=== PATIENT | male | born 1975 | race Native Hawaiian/Other Pacific Islander ===

== ENCOUNTER 2017-11-04 12:20 | Inpatient (IN) | payer OTHER ==
[2017-11-04 12:28] VITALS: BMI 48.6
[2017-11-04] MEDS ORDERED: SODIUM CHLORIDE 1,000 ML IV STA (13:47)
[2017-11-04] MEDS ORDERED: ONDANSETRON 4 MG/2 ML VIAL IVPB ONE (13:47)
[2017-11-04] MEDS ORDERED: morphine CARPU-JECT 4 MG/1 ML DISP.SYRIN IVPUSH ONE ×3 (13:47→15:56)
[2017-11-04] MEDS ORDERED: MORPHINE SULFATE 10 MG/1 ML *VIAL ONE ×3 (14:03→18:16)
[2017-11-04] MEDS ORDERED: ONDANSETRON 4 MG/2 ML VIAL ONE ×2 (14:04→15:58)
--- NOTE | 2017-11-04 14:24 | PDOC ---
History of Present Illness - History of Present Illness Initial Comments: 11/04/17 15:13 The patient is a 42 year old male with a significant PMH of kidney stones and HTN who presents to the emergency department with right mid abdominal pain since yesterday. The patient describes the abdominal pain as severe, constant with associated nausea. The patient states he had kidney stones in the past, but reports this feels different. The patient denies any history of appendectomy. The patient denies chest pain, shortness of breath, headache and dizziness. Denies fever, chills, nausea, vomit, diarrhea and constipation. Denies dysuria, frequency, urgency and hematuria. Allergies: acetaminophen, latex, natural rubber, oxycodone. Past surgical history: None reported. Social history: No reported alcohol, drug, or cigarette use. <Indy Mendoza - Last Filed: 11/04/17 15:18> - General History Source: Patient Exam Limitations: No Limitations <Winston Balbuena - Last Filed: 11/04/17 17:29> - General Chief Complaint: Pain, Acute Stated Complaint: ABD PAIN Time Seen by Provider: 11/04/17 13:42 Past History <Indy Mendoza - Last Filed: 11/04/17 15:18> - Past Medical History COPD: No HTN: Yes - Suicide/Smoking/Psychosocial Hx Smoking History: Current every day smoker Number of Cigarettes Smoked Daily: 20 Information on smoking cessation initiated: Yes 'Breaking Loose' booklet given: 11/04/17 Hx Alcohol Use: No Drug/Substance Use Hx: No Substance Use Type: None <Winston Balbuena - Last Filed: 11/04/17 17:29> - Past Medical History Allergies/Adverse Reactions: Allergies Allergy/AdvReac Type Severity Reaction Status Date / Time acetaminophen [From Percocet] Allergy Severe Swelling Verified 11/04/17 12:21 Latex, Natural Rubber Allergy Severe Swelling Verified 11/04/17 12:22 oxycodone [From Percocet] Allergy Severe Swelling Verified 11/04/17 12:21 Review of Systems - Review of Systems Able to Perform ROS?: Yes Comments:: 11/04/17 15:12 GENERAL/CONSTITUTIONAL: No fever or chills. No weakness. HEAD, EYES, EARS, NOSE AND THROAT: No change in vision. No ear pain or discharge. No sore throat. CARDIOVASCULAR: No chest pain or shortness of breath. RESPIRATORY: No cough, wheezing, or hemoptysis. GASTROINTESTINAL: (+) Right sided abdominal pain. (+) Nausea. No vomiting, diarrhea or constipation. GENITOURINARY: No dysuria, frequency, or change in urination. MUSCULOSKELETAL: No joint or muscle swelling or pain. No neck or back pain. SKIN: No rash NEUROLOGIC: No headache, vertigo, loss of consciousness, or change in strength/ sensation. ENDOCRINE: No increased thirst. No abnormal weight change. HEMATOLOGIC/LYMPHATIC: No anemia, easy bleeding, or history of blood clots. ALLERGIC/IMMUNOLOGIC: No hives or skin allergy. <Indy Mendoza - Last Filed: 11/04/17 15:18> *Physical Exam - Vital Signs Last Vital Signs Temp Pulse Resp BP Pulse Ox 98.2 F 110 H 24 143/94 99 11/04/17 12:22 11/04/17 12:22 11/04/17 12:22 11/04/17 12:22 11/04/17 14:40 - Physical Exam Comments: 11/04/17 15:12 ADULT EXAM GENERAL: (+) Appears uncomfortable on stretcher. (+) Obese. Awake, alert, and fully oriented. HEAD: No signs of trauma EYES: PERRLA, EOMI, sclera anicteric, conjunctiva clear ENT: Auricles normal inspection, hearing grossly normal, nares patent, oropharynx clear without exudates. Moist mucosa NECK: Normal ROM, supple, JVD, or masses LUNGS: Breath sounds equal, clear to auscultation bilaterally. No wheezes, and no crackles HEART: Regular rate and rhythm, normal S1 and S2, no murmurs, rubs or gallops ABDOMEN: (+) Right mid abdominal and RLQ tenderness. Soft, normoactive bowel sounds. No guarding, no rebound. No masses EXTREMITIES: Normal range of motion, no edema. No clubbing or cyanosis. No cords, erythema, or tenderness NEUROLOGICAL: Cranial nerves II through XII grossly intact. Normal speech. SKIN: Warm, Dry, normal turgor, no rashes or lesions noted. <Indy Mendoza - Last Filed: 11/04/17 15:18> - Vital Signs Last Vital Signs Temp Pulse Resp BP Pulse Ox 98.2 F 110 H 24 143/94 100 11/04/17 12:22 11/04/17 12:22 11/04/17 12:22 11/04/17 12:22 11/04/17 12:22 <Winston Balbuena - Last Filed: 11/04/17 17:29> ED Treatment Course - LABORATORY CBC & Chemistry Diagram: 11/04/17 14:15 11/04/17 14:15 - ADDITIONAL ORDERS Additional order review: 11/04/17 14:15 RBC 4.75 MCV 79.6 L MCHC 31.5 L RDW 15.4 MPV 7.0 L Neutrophils % No Result Required. Lymphocytes % No Result Required. - Medications Given in the ED: ED Medications Discontinued Medications Generic Name Dose Route Start Last Admin Trade Name Freq PRN Reason Stop Dose Admin Sodium Chloride 1,000 mls @ 1,000 mls/hr 11/04/17 13:47 11/04/17 14:26 Normal Saline - IV 11/04/17 14:46 1,000 mls/hr ASDIR STA Administration Morphine Sulfate 6 mg 11/04/17 13:47 11/04/17 14:25 Morphine Injection - IVPUSH 11/04/17 13:48 6 mg ONCE ONE Administration Ondansetron HCl 4 mg 11/04/17 13:47 11/04/17 14:26 Zofran Injection IVPB 11/04/17 13:48 4 mg ONCE ONE Administration <Indy Mendoza - Last Filed: 11/04/17 15:18> - LABORATORY CBC & Chemistry Diagram: 11/04/17 14:15 11/04/17 14:15 - RADIOLOGY Radiology Studies Ordered: Category Date Time Status SPIRAL- RENAL-STONE CT [CT] Stat CT Scan 11/04/17 13:47 Ordered <Winston Balbuena - Last Filed: 11/04/17 17:29> Medical Decision Making - Medical Decision Making 11/04/17 14:22 A portion of this note was documented by scribe services under my direction. I have reviewed the details of the note, within reason, and agree with the documentation with the following case summary and management plan written by me. Patient treated in the ED. Nursing notes are reviewed and incorporated into the medical decision-making. Vital signs reviewed. Peripheral IV access obtained by the nurse, laboratory studies are drawn and sent, reviewed and interpreted by myself. Vital Signs Temp Pulse Resp BP Pulse Ox 98.2 F 110 H 24 143/94 100 11/04/17 12:22 11/04/17 12:22 11/04/17 12:22 11/04/17 12:22 11/04/17 12:22 42-year-old male with past medical history of kidney stones presents with right mid abdominal pain since yesterday. Patient reported the pain is severe and constant associated nausea but denies any vomiting. Denies dysuria or hematuria. Denies fevers or chills. Denies history of prior appendectomy. Came to the ED for further evaluation. We'll need to rule out renal colic versus appendicitis. Labs, urinalysis, CAT scan and reassess. 11/04/17 17:26 CBC, BMP 11/04/17 14:15 11/04/17 14:15 CMP Sodium 138 mmol/L (136-145) 11/04/17 14:15 Potassium 4.3 mmol/L (3.5-5.1) 11/04/17 14:15 Chloride 103 mmol/L (98-107) 11/04/17 14:15 Carbon Dioxide 27 mmol/L (21-32) 11/04/17 14:15 Anion Gap 8 (8-16) 11/04/17 14:15 BUN 14 mg/dL (7-18) 11/04/17 14:15 Creatinine 1.4 mg/dL (0.7-1.3) H 11/04/17 14:15 Creat Clearance w eGFR 55.05 (>60) 11/04/17 14:15 Random Glucose 106 mg/dL (74-106) 11/04/17 14:15 Calcium 8.3 mg/dL (8.5-10.1) L 11/04/17 14:15 Total Bilirubin 0.4 mg/dL (0.2-1.0) 11/04/17 14:15 AST 8 U/L (15-37) L 11/04/17 14:15 ALT 11 U/L (12-78) L 11/04/17 14:15 Alkaline Phosphatase 108 U/L (45-117) 11/04/17 14:15 Total Protein 7.2 g/dl (6.4-8.2) 11/04/17 14:15 Albumin 3.3 g/dl (3.4-5.0) L 11/04/17 14:15 Lipase 65 U/L (73-393) L 11/04/17 14:15 CT scan shows stranding, cannot r/o appendicitis. Zosyn ordered. Case discussed with Dr. Jaffe who is seeing the patient. Case discussed with [facility] hospitalist. Case admitted to med/surg admission. Case discussed in detail with admitting physician including history, physical exam and ancillary studies. Admitting physician has assumed care for the patient, will follow all pending diagnostics and will complete the evaluation and treatment. <Winston Balbuena - Last Filed: 11/04/17 17:29> *DC/Admit/Observation/Transfer - Attestations Scribe Attestion: 11/04/17 15:13 Documentation prepared by Indy Mendoza, acting as medical detailist for Winston Balbuena MD. <Indy Mendoza - Last Filed: 11/04/17 15:18> - Discharge Dispostion Admit: Yes <Winston Balbuena - Last Filed: 11/04/17 17:29> Diagnosis at time of Disposition: Abdominal pain Qualifiers: Abdominal location: unspecified location Qualified Code(s): R10.9 - Unspecified abdominal pain Leukocytosis Qualifiers: Leukocytosis type: unspecified Qualified Code(s): D72.829 - Elevated white blood cell count, unspecified - Discharge Dispostion Condition at time of disposition: Stable - Referrals Referrals: ON STAFF,NOT [Primary Care Provider] - - Patient Instructions - Post Discharge Activity
[2017-11-04 14:59] LABS: HEMATOCRIT 37.8 % (35.4-49); HEMOGLOBIN 11.9 GM/dL (11.7-16.9); MCH 25.1 pg (25.7-33.7); MCHC 31.5 g/dl (32.0-35.9); MEAN CELL VOLUME 79.6 fl (80-96); PLATELET COUNT 515 K/MM3 (134-434); RBC 4.75 M/mm3 (4.00-5.60); RDW 15.4 % (11.9-15.9)
[2017-11-04 15:51] LABS: ANISOCYTOSIS 1+; MACROCYTOSIS 0; PLATELET ESTIMATE INCREASED
[2017-11-04 16:03] LABS: ALBUMIN 3.3 g/dl (3.4-5.0); ALK PHOS 108 U/L (45-117); ANION GAP 8 (8-16); BILIRUBIN,TOTAL 0.4 mg/dL (0.2-1.0); BLOOD UREA NITROGEN 14 mg/dL (7-18); CALCIUM 8.3 mg/dL (8.5-10.1); CHLORIDE 103 mmol/L (98-107); CO2 27 mmol/L (21-32); CREATININE 1.4 mg/dL (0.7-1.3); GLUCOSE,RANDOM 106 mg/dL (74-106); LIPASE 65 U/L (73-393); POTASSIUM 4.3 mmol/L (3.5-5.1); SGOT/AST 8 U/L (15-37); SGPT/ALT 11 U/L (12-78); SODIUM 138 mmol/L (136-145); TOT PROT 7.2 g/dl (6.4-8.2)
[2017-11-04] MEDS ORDERED: PIPERACIL/TAZOB 3.375 GM 3.375 GM/50 ML PREMIX IVPB ONE (16:42)
--- NOTE | 2017-11-04 17:10 | CONSULT ---
Consult Consult Specialty:: general surgery Referred by:: hernando chung MD Reason for Consultation:: abdominal pain - History of Present Illness Chief Complaint: abdominal pain History of Present Illness: 42yo male PMH HTN, obesity presents with right lower quadrant abdominal pain for about 24 hours. onset was gradual but focal to right lower quadrant. no previous similar episodes. Reports increase passage of flatus and diarrhea. He denies fever and chill. He has not had an appetite. He rates the pain a 7/10 and morphine in the ED helped. He has no other symptoms hair loss, rashes, etc. of inflammatory bowel disease. no previous endoscopy. no previous abdominal surgery. We were asked to assess. - History Source History Provided By: Patient, Medical Record Limitations to Obtaining History: No Limitations - Past Medical History Cardio/Vascular: Yes: HTN Additional Medical History: obesity - Alcohol/Substance Use Hx Alcohol Use: No - Smoking History Smoking history: Current every day smoker Aproximately how many cigarettes per day: 20 - Social History Place of : [facility] ([place] History of Recent Travel: No Home Medications - Allergies Allergies/Adverse Reactions: Allergies Allergy/AdvReac Type Severity Reaction Status Date / Time acetaminophen [From Percocet] Allergy Severe Swelling Verified 11/04/17 12:21 Latex, Natural Rubber Allergy Severe Swelling Verified 11/04/17 12:22 oxycodone [From Percocet] Allergy Severe Swelling Verified 11/04/17 12:21 Review of Systems - Review of Systems Constitutional: denies: Chills, Fever Eyes: denies: Blind Spots, Recent Change in Vision HENT: denies: Difficult Swallowing, Throat Pain Neck: denies: Pain on Movement, Tenderness Cardiovascular: denies: Chest Pain, Palpitations Respiratory: denies: Cough, SOB Gastrointestinal: reports: Abdominal Pain, Bloating, Diarrhea. denies: Constipation Genitourinary: denies: Discharge, Dysuria Breasts: reports: No Symptoms Reported. denies: Pain Musculoskeletal: denies: Back Pain, Muscle Cramps, Muscle Weakness Integumentary: denies: Lesions, Rash Neurological: denies: Confusion, Dizziness Endocrine: denies: Unexplained Weight Gain, Unexplained Weight Loss Hematology/Lymphatic: denies: Easily Bruised, Excessive Bleeding Psychiatric: denies: Anxiety, Depression Physical Exam Vital Signs: Vital Signs Temperature 98.2 F 11/04/17 12:22 Pulse Rate 110 H 11/04/17 12:22 Respiratory Rate 24 11/04/17 12:22 Blood Pressure 143/94 11/04/17 12:22 O2 Sat by Pulse Oximetry (%) 99 11/04/17 14:40 Vital Signs Period Temp Pulse Resp BP Sys/Abraham Pulse Ox Last 24 Hr 98.2 F 110 24 143/94 99-100 Constitutional: Yes: Anxious, Mild Distress, Obese Eyes: Yes: Conjunctiva Clear, EOM Intact HENT: Yes: Atraumatic, Normocephalic Neck: Yes: Supple, Trachea Midline Cardiovascular: Yes: Regular Rate and Rhythm, S1, S2 Respiratory: Yes: Regular, CTA Bilaterally Gastrointestinal: Yes: Normal Bowel Sounds, Soft, Abdomen, Obese, Tenderness ( Tender RLQ, voluluntary guarding, reborund, not rigid, + psoas sign), Tenderness , Rebound. No: Vomiting ...Rectal Exam: Yes: Sphincter Tone Normal. No: Mass Renal/: No: CVA Tenderness - Left, CVA Tenderness - Right Musculoskeletal: No: Muscle Pain, Muscle Weakness Extremities: No: Cool, Cyanosis Edema: No Peripheral Pulses WNL: Yes Neurological: Yes: Alert, Oriented Psychiatric: Yes: Alert, Oriented Labs: CBC, BMP 11/04/17 14:15 11/04/17 14:15 Imaging - Results Cat Scan: Report Reviewed, Image Reviewed (mesentaric edema RLQ, inflamed appendix, inflamed loos of SB) Problem List - Problems (1) Appendicitis, acute, with peritonitis Assessment/Plan: 42yo male with PMH HTN morbid obesity, appendicitis with peritonitits, WBC >24, CT shows NPO and IVF hydration empiric IV antibiotics Stat labs Diagnostic laparoscopy, appendectomy, possible exploratory laparotomy, possbible bowel ressection, possible ostomy -- Discussed with patient risks, benefits and alternatives of proposed procedure, including but not limited to bleeding, infection, injury to adjacent structures, leak or injury, intraabdominal abscess, need for further procedures, ; alternatives include antibiotics, delayed or no surgery - risks of this include failure of nonoperative therapy, perforation, sepsis, recurrence, . Patient desires to proceed with operation - will take to OR for above. Informed consent signed for same. Thank you for the opportunity to participate in the care of this patient. Code(s): K35.3 - ACUTE APPENDICITIS WITH LOCALIZED PERITONITIS (2) Right lower quadrant abdominal pain Code(s): R10.31 - RIGHT LOWER QUADRANT PAIN (3) HTN (hypertension) Code(s): I10 - ESSENTIAL (PRIMARY) HYPERTENSION Qualifiers: Hypertension type: essential hypertension Qualified Code(s): I10 - Essential (primary) hypertension (4) Morbid obesity with BMI of 45.0-49.9, adult Code(s): E66.01 - MORBID (SEVERE) OBESITY DUE TO EXCESS CALORIES; Z68.42 - BODY MASS INDEX (BMI) 45.0-49.9, ADULT (5) Leukocytosis Code(s): D72.829 - ELEVATED WHITE BLOOD CELL COUNT, UNSPECIFIED Qualifiers: Leukocytosis type: unspecified Qualified Code(s): D72.829 - Elevated white blood cell count, unspecified
--- NOTE | 2017-11-04 17:15 | HP ---
Admitting History and Physical - Admission Chief Complaint: abdominal pain History of Present Illness: This is a 42 year old male with pmhx of htn, active smoke, kidney stones, knee replacement who presented to the ED with worsening abdominal pain since last night. He states he has suffered from the stomach flu x2 in the last 2 months. The pain is acute to the RLQ and diffuse to lower abdomen. His breathing is shallow and his pain is associated with nausea. History Source: Patient Limitations to Obtaining History: No Limitations - Past Medical History Cardiovascular: Yes: HTN - Past Surgical History Additional Past Surgical History: knee replacement - Smoking History Smoking history: Current every day smoker Aproximately how many cigarettes per day: 20 - Alcohol/Substance Use Hx Alcohol Use: No History of Substance Use: reports: None - Social History Usual Living Arrangement: Yes: With Spouse ADL: Independent Occupation: computers History of Recent Travel: No Home Medications - Allergies Allergies/Adverse Reactions: Allergies Allergy/AdvReac Type Severity Reaction Status Date / Time acetaminophen [From Percocet] Allergy Severe Swelling Verified 11/04/17 12:21 Latex, Natural Rubber Allergy Severe Swelling Verified 11/04/17 12:22 oxycodone [From Percocet] Allergy Severe Swelling Verified 11/04/17 12:21 Review of Systems - Review of Systems Constitutional: reports: No Symptoms Eyes: reports: No Symptoms HENT: reports: No Symptoms Neck: reports: No Symptoms Cardiovascular: reports: No Symptoms Respiratory: reports: No Symptoms Gastrointestinal: reports: Abdominal Pain, Nausea Genitourinary: reports: No Symptoms Musculoskeletal: reports: No Symptoms Integumentary: reports: No Symptoms Neurological: reports: No Symptoms Endocrine: reports: No Symptoms Hematology/Lymphatic: reports: No Symptoms Psychiatric: reports: No Symptoms Physical Examination Vital Signs: Vital Signs Temperature 98.2 F 11/04/17 12:22 Pulse Rate 110 H 11/04/17 12:22 Respiratory Rate 24 11/04/17 12:22 Blood Pressure 143/94 11/04/17 12:22 O2 Sat by Pulse Oximetry (%) 99 11/04/17 14:40 Constitutional: Yes: Severe Distress Eyes: Yes: Conjunctiva Clear HENT: Yes: WNL Neck: Yes: WNL Cardiovascular: Yes: Regular Rate and Rhythm, Tachycardia Respiratory: Yes: Regular, CTA Bilaterally Gastrointestinal: Yes: Normal Bowel Sounds, Abdomen, Obese, Hypoactive Bowel Sounds, Tenderness, Tenderness, Rebound (RLQ) Renal/: Yes: WNL Musculoskeletal: Yes: WNL Extremities: Yes: WNL Edema: No Peripheral Pulses WNL: Yes Neurological: Yes: Alert, Oriented, Cran Nerves II-XII Intact Labs: CBC, BMP 11/04/17 14:15 11/04/17 14:15 Imaging - Results Cat Scan: Report Reviewed (RLQ mesenteric wall edema involving several distal ileal loops) Problem List - Problems (1) Abdominal pain Code(s): R10.9 - UNSPECIFIED ABDOMINAL PAIN Qualifiers: Abdominal location: unspecified location Qualified Code(s): R10.9 - Unspecified abdominal pain (2) Leukocytosis Code(s): D72.829 - ELEVATED WHITE BLOOD CELL COUNT, UNSPECIFIED Qualifiers: Leukocytosis type: unspecified Qualified Code(s): D72.829 - Elevated white blood cell count, unspecified Assessment/Plan Assessment: 42 year old male admitted with intractable abdominal pain Plan: 1. Sepsis with likely abdominal source - Intractable abdominal pain - CTAP noted, contrast not visible due to ?inflammation - Will go to OR emergently for Exploratory laparotomy and appendectomy - Zosyn given in ED - D/w Dr. iglesias 2. HTN - Norvasc - Lisinopril 3. Active smoker - Give nicotine patch if requires 4. CORTNEY - Due to spesis - Start fluids 6. Thrombocytosis - Likely reactive 7. DVT - SCDs for now Visit type - Emergency Visit Emergency Visit: Yes Care time: The patient presented to the Emergency Department on the above date and was hospitalized for further evaluation of their emergent condition. - New Patient This patient is new to me today: Yes Date on this admission: 11/04/17 - Critical Care Critical Care patient: No Hospitalist Screening - Colonoscopy Questionnaire Colonoscopy Questionnaire: Colonoscopy Questionnaire - Patient: 50 - 75 years old and never had a screening colonoscopy: Unknown History of colon or rectal polyps, or CA: Unknown History of IBD, Crohn's disease or UC: Unknown History of abdominal radiation therapy as a child: Unknown - Relative: 1 with colon or rectal CA, or polyps at age 60 or younger: Unknown Colon or rectal CA diagnosed at age 45 or younger: Unknown Multiple relatives with colon or rectal CA: Unknown - Outcome: Screening Result: Negative Screen
[2017-11-04] MEDS: PIPERACILLIN/TAZOB 3.375 GM 3.375 GM in DEXTROSE 5%-WATER - 50 ML IVPB ONE ×2 (17:19→18:56)
[2017-11-04] MEDS ORDERED: PIPERACILLIN/TAZOB 3.375 GM 3.375 GM/50 ML BAG IVPB ONE (17:20)
[2017-11-04 17:50] LABS: URINE APPEARANCE CLEAR; URINE BILIRUBIN NEGATIVE (NEGATIVE); URINE BLOOD NEGATIVE (NEGATIVE); URINE COLOR AMBER; URINE GLUCOSE (UA) NEGATIVE (NEGATIVE); URINE KETONE NEGATIVE (NEGATIVE); URINE LEUK ESTERASE NEGATIVE (NEGATIVE); URINE NITRITE NEGATIVE (NEGATIVE); URINE UROBILINOGEN 4.0 E.U/dl mg/dL (0.2-1.0)
[2017-11-04] MEDS ORDERED: MORPHINE SULFATE 10 MG/1 ML *VIAL IVPUSH PRN ×2 (17:54→22:55)
[2017-11-04 18:00] LABS: URINE PROTEIN 2+ (NEGATIVE)
[2017-11-04] MEDS ORDERED: LACTATED RINGERS SOLUTION 1,000 ML/1,000 ML INFUS.BAG IV SCH ×2 (18:00→22:55)
[2017-11-04] MEDS ORDERED: SODIUM CHLORIDE 1,000 ML IV SCH (18:00)
[2017-11-04 18:05] LABS: URINE MUCUS MANY
[2017-11-04] MEDS ORDERED: PROPOFOL 20 ML ONE (19:29)
[2017-11-04] MEDS ORDERED: ROCURONIUM BROMIDE 50 MG/5 ML VIAL ONE (19:30)
[2017-11-04] MEDS ORDERED: SUCCINYLCHOLINE CHLORIDE 200 MG/10 ML VIAL ONE (19:30)
[2017-11-04] MEDS ORDERED: DEXAMETHASONE SOD PHOSPHATE 4 MG/1 ML VIAL ONE (20:27)
[2017-11-04] MEDS ORDERED: METOPROLOL TARTRATE 5 MG/5 ML VIAL ONE (20:43)
[2017-11-04] MEDS ORDERED: NEOSTIGMINE METHYLSULFATE 0.5 MG/ML - 10 ML MDV ONE (21:44)
[2017-11-04] MEDS ORDERED: GLYCOPYRROLATE 0.2 MG/1 ML VIAL ONE (21:44)
--- NOTE | 2017-11-04 22:08 | OP ---
Operative Note - Note: Operative Date: 11/04/17 Pre-Operative Diagnosis: acute appendicitis with intraabdominal abscess Operation: diagnositic laparoscopy, laparotomy, lysis of adhesions, appendectomy and abdominal washout Findings: purulent drainage and peel all over the lower abdomen, inflamed appendix stapled with endo TIFFANY Implants: none Post-Operative Diagnosis: Same as Pre-op Surgeon: Bernardo Jaffe Anesthesiologist/CORPORATE EXECUTIVE CHEF: Lanette Lockwood Anesthesia: General Estimated Blood Loss (mls): 20 Drains & Tubes with Location: RLQ GENA Drain size 10 flat Drains, Volume Out (mls): 250 (jason) Fluid Volume Replaced (mls): 1,600 Operative Report Dictated: Yes
[2017-11-04] MEDS ORDERED: ACETAMINOPHEN INJECTION 100 ML IVPB ONE (22:19)
[2017-11-04] MEDS ORDERED: ACETAMINOPHEN 1000 MG/100 ML VIAL (NON FORMULARY) IVPB PRN ×3 (22:23→23:05)
[2017-11-04 22:29] LABS: BASO % 0.3 % (0-2.0); HEMATOCRIT 37.6 % (35.4-49); LYMPH % 3.3 % (8-40); MCH 25.2 pg (25.7-33.7); MEAN PLT VOLUME 6.8 fl (7.5-11.1); MONO % 2.9 % (3.8-10.2); NEUT % 93.5 % (42.8-82.8); PLATELET COUNT 511 K/MM3 (134-434); RBC 4.76 M/mm3 (4.00-5.60); RDW 15.3 % (11.9-15.9); WHITE BLOOD COUNT 22.4 K/mm3 (4.0-10.0)
[2017-11-04 22:45] LABS: INR 1.25 (0.82-1.09); PROTHROMBIN TIME (PATIENT) 14.1 SEC (9.98-11.88)
[2017-11-04] MEDS ORDERED: PIPERACILLIN/TAZOB 3.375 GM/50 ML PRE-DOCKED IVPB ONE ×2 (23:00)
[2017-11-04] MEDS ORDERED: PIPERACILLIN/TAZOB 3.375 GM 3.375 GM in DEXTROSE 5%-WATER - 50 ML IVPB ONE (23:00)
[2017-11-04 23:01] LABS: ALBUMIN 2.9 g/dl (3.4-5.0); ALK PHOS 101 U/L (45-117); ANION GAP 11 (8-16); BILIRUBIN,TOTAL 1.2 mg/dL (0.2-1.0); BLOOD UREA NITROGEN 13 mg/dL (7-18); CALCIUM 8.2 mg/dL (8.5-10.1); CHLORIDE 103 mmol/L (98-107); CO2 24 mmol/L (21-32); CREATININE 1.5 mg/dL (0.7-1.3); GLUCOSE,RANDOM 154 mg/dL (74-106); POTASSIUM 4.4 mmol/L (3.5-5.1); SGOT/AST 6 U/L (15-37); SGPT/ALT 14 U/L (12-78); SODIUM 138 mmol/L (136-145); TOT PROT 6.9 g/dl (6.4-8.2)
--- NOTE | 2017-11-04 23:19 | CONSULT ---
Consult Consult Specialty:: Pulm/ critical care Referred by:: Kirsten Jordan Reason for Consultation:: s/p appendectomy - History of Present Illness Chief Complaint: abdominal pain History of Present Illness: 42 y/o man with h/o morbid obesity, HTN, kidney stones, + tobacco and likely undiagnosed sleep apnea who presented to ED with right abdominal pain and and nausea. Pt reports pain x 1 day however also reports several weeks of stomach flu. He reports having kidney stones in the past but feels this pain is different, described as acute to RLQ and diffuse to lower abdomen, associated with nausea. He reports having no appetite and increased passage of flatus and diarrhea. VS in ED: T 98.2, HR 110, BP 143/94, RR 24, 100% on RA. Labs notable for WBC 24 , creat 1.4, lipase 65. He was given morphine for pain with some relief and underwent CT A/P which was notable for thickened appendix with some mesenteric edema. Pt was taken to OR with plan for laparoscopic appendectomy however due to adhesions and extensive infection, it was converted to open. He was found to have purulent drainage and peel extending through lower abdomen. Appendix was inflamed, was removed and abdomen washed out, fascia closed with drain in place , and skin left open. Pt was given zosyn. Post-op pt was maintained on CPAP due to concern for sleep apnea. Active Medications Acetaminophen (Ofirmev Injection -) 1,000 mg IVPB Q6H PRN PRN Reason: PAIN LEVEL 6-10 Chlorhexidine Gluconate (Hibiclens For Decolonization -) 1 applic TP HS BRIAN Lactated Ringer's (Lactated Ringers Solution) 1,000 ml in 1,000 mls @ 125 mls/ hr IV ASDIR BRIAN Piperacillin Sod/Tazobactam (Sod 3.375 gm/ Dextrose) 50 mls @ 100 mls/hr IVPB ONCE ONE Stop: 11/04/17 23:29 Piperacillin Sod/Tazobactam (Sod 3.375 gm/ Dextrose) 50 mls @ 100 mls/hr IVPB ONCE ONE Stop: 11/05/17 05:29 Famotidine (Pepcid 20 Mg/12 Ml Push) 20 mg in 12 mls @ 144 mls/hr IVPUSH BID BRIAN Mupirocin (Bactroban Ointment (For Decolonization) -) 1 applic NS BID [facility] Stop: 11/10/17 09:59 - History Source History Provided By: Medical Record Limitations to Obtaining History: Other (cpap) - Past Medical History Cardio/Vascular: Yes: HTN Gastrointestinal: Yes: Other (appendicitis) Renal/: Yes: Renal Calculi Additional Medical History: obesity - Past Surgical History Past Surgical History: Yes: Appendectomy - Alcohol/Substance Use Hx Alcohol Use: No History of Substance Use: reports: None - Smoking History Smoking history: Current every day smoker Aproximately how many cigarettes per day: 20 - Social History ADL: Independent Occupation: computers History of Recent Travel: No Home Medications - Allergies Allergies/Adverse Reactions: Allergies Allergy/AdvReac Type Severity Reaction Status Date / Time acetaminophen [From Percocet] Allergy Severe Swelling Verified 11/04/17 12:21 Latex, Natural Rubber Allergy Severe Swelling Verified 11/04/17 12:22 oxycodone [From Percocet] Allergy Severe Swelling Verified 11/04/17 12:21 - Home Medications Home Medications: Ambulatory Orders Amlodipine Besylate [Norvasc -] 5 mg PO DAILY 11/04/17 Lisinopril [Prinivil] 20 mg PO DAILY 11/04/17 Family Disease History - Family Disease History Family History: Unable to Obtain (pt lethargic, on cpap) Review of Systems Unable to obtain ROS, reason: pt lethargic, on cpap Physical Exam Vital Signs: Vital Signs Temperature 98.9 F 11/04/17 22:02 Pulse Rate 92 H 11/04/17 22:45 Respiratory Rate 16 11/04/17 22:45 Blood Pressure 120/68 11/04/17 22:45 O2 Sat by Pulse Oximetry (%) 96 11/04/17 22:45 Eyes: Yes: WNL, Conjunctiva Clear, Other (pupils pinpoint) HENT: Yes: Normocephalic Cardiovascular: Yes: Regular Rate and Rhythm Respiratory: Yes: CTA Bilaterally, On BiPap Gastrointestinal: Yes: Abdomen, Obese, Hypoactive Bowel Sounds, Tenderness, Other (wound with dressing intact, GENA drain with purulent drainage) Extremities: Yes: WNL Edema: No Peripheral Pulses WNL: Yes Integumentary: Yes: WNL, Tattoos. No: Erythema Wound/Incision: Yes: Dressing Dry and Intact, Other (GENA drain in place with purulent drainage) Neurological: Yes: Lethargy Labs: CBC, BMP 11/04/17 22:15 11/04/17 22:15 Imaging - Results Cat Scan: Report Reviewed Problem List - Problems (1) Abdominal pain Code(s): R10.9 - UNSPECIFIED ABDOMINAL PAIN Qualifiers: Abdominal location: unspecified location Qualified Code(s): R10.9 - Unspecified abdominal pain (2) Appendicitis, acute, with peritonitis Code(s): K35.3 - ACUTE APPENDICITIS WITH LOCALIZED PERITONITIS (3) HTN (hypertension) Code(s): I10 - ESSENTIAL (PRIMARY) HYPERTENSION Qualifiers: Hypertension type: essential hypertension Qualified Code(s): I10 - Essential (primary) hypertension (4) Leukocytosis Code(s): D72.829 - ELEVATED WHITE BLOOD CELL COUNT, UNSPECIFIED Qualifiers: Leukocytosis type: unspecified Qualified Code(s): D72.829 - Elevated white blood cell count, unspecified (5) Morbid obesity with BMI of 45.0-49.9, adult Code(s): E66.01 - MORBID (SEVERE) OBESITY DUE TO EXCESS CALORIES; Z68.42 - BODY MASS INDEX (BMI) 45.0-49.9, ADULT Assessment/Plan Assessment: 42 y/o man with h/o morbid obesity, HTN, kidney stones, + tobacco and likely undiagnosed sleep apnea who presented with RLQ abdominal pain and nausea found to have appendicitis now s/p open appendectomy and wash out, admitted to ICU for post-op monitoring Plan: GI: appendicitis c/b peritonitis now s/p open appendectomy and wash out -plan per surgery -NPO -wound care -will attempt to limit pain control overnight - can advance in am when more awake per anesthesia request due to presumed sleep apnea and somewhat difficult airway -abx as outlined below -PPI ID: appendicitis c/b peritonitis s/p appendectomy and wash out -continue zosyn per surgery -f/u cxl data -monitor WBC, fever trend -close monitoring - at high risk for sepsis -ID consult as needed Pulm: likely undiagnosed sleep apnea -continue CPAP -titrate O2 as needed -pulm consult in am CV: HTN at baseline -close hemodynamic monitoring - pt at risk for sepsis -resume anti-HTN meds as appropriate Renal: Creat slightly elevated on admission, unknown baseline -trend creat -renally dose meds as indicated -continue IVF PPX: -PPI -SCDs Dispo: FULL Marisela Giordano ACNP CCT: 35 mins
[2017-11-05] MEDS ORDERED: PIPERACILLIN/TAZOB 3.375 GM/50 ML PRE-DOCKED IVPB ONE ×3 (05:00→12:46)
[2017-11-05] MEDS ORDERED: PIPERACILLIN/TAZOB 3.375 GM 3.375 GM in DEXTROSE 5%-WATER - 50 ML IVPB ONE (05:00)
[2017-11-05 06:41] LABS: HEMATOCRIT 34.2 % (35.4-49); HEMOGLOBIN 11.1 GM/dL (11.7-16.9); LYMPH % 2.6 % (8-40); MCH 25.6 pg (25.7-33.7); MCHC 32.4 g/dl (32.0-35.9); MEAN PLT VOLUME 6.9 fl (7.5-11.1); MONO % 2.7 % (3.8-10.2); NEUT % 94.7 % (42.8-82.8); PLATELET COUNT 451 K/MM3 (134-434); RBC 4.33 M/mm3 (4.00-5.60); RDW 15.6 % (11.9-15.9)
[2017-11-05 07:01] LABS: CHLORIDE 103 mmol/L (98-107); POTASSIUM 4.5 mmol/L (3.5-5.1); SODIUM 138 mmol/L (136-145)
[2017-11-05 07:19] LABS: ALBUMIN 2.6 g/dl (3.4-5.0); ALK PHOS 91 U/L (45-117); ANION GAP 11 (8-16); BILIRUBIN,TOTAL 1.3 mg/dL (0.2-1.0); BLOOD UREA NITROGEN 15 mg/dL (7-18); CALCIUM 8.4 mg/dL (8.5-10.1); CO2 24 mmol/L (21-32); CREATININE 1.5 mg/dL (0.7-1.3); GLUCOSE,RANDOM 137 mg/dL (74-106); SGOT/AST 6 U/L (15-37); SGPT/ALT 13 U/L (12-78); TOT PROT 6.5 g/dl (6.4-8.2)
[2017-11-05] MEDS ORDERED: SODIUM CHLORIDE 1,000 ML IV SCH (08:00)
--- NOTE | 2017-11-05 08:00 | PN ---
Progress Note, Physician Chief Complaint: ID Cull note dictated Alert BIBAP mask Afebrile - Current Medication List Current Medications: Active Medications Chlorhexidine Gluconate (Hibiclens For Decolonization -) 1 applic TP HS BRIAN Famotidine/Sodium Chloride (Pepcid 20 Mg Premixed Ivpb -) 20 mg in 50 mls @ 100 mls/hr IVPB BID BRIAN Sodium Chloride (Normal Saline -) 1,000 mls @ 83 mls/hr IV ASDIR RBIAN Mupirocin (Bactroban Ointment (For Decolonization) -) 1 applic NS BID BRIAN Stop: 11/10/17 09:59 - Objective Vital Signs: Vital Signs Temperature 97.9 F 11/05/17 02:00 Pulse Rate 70 11/05/17 04:37 Respiratory Rate 14 11/05/17 04:37 Blood Pressure 148/90 11/05/17 04:37 O2 Sat by Pulse Oximetry (%) 98 11/05/17 07:00 Constitutional: Yes: Obese HENT: Yes: WNL, Atraumatic Neck: Yes: WNL, Supple Cardiovascular: Yes: S1, S2 Respiratory: Yes: WNL, Regular, CTA Bilaterally Gastrointestinal: Yes: Soft ...Rectal Exam: Yes: Other (Drain) Edema: No Labs: CBC, BMP 11/05/17 06:15 11/05/17 06:15 INR, PTT INR 1.25 (0.82-1.09) H 11/04/17 22:15 Problem List - Problems (1) Appendicitis, acute, with peritonitis Code(s): K35.3 - ACUTE APPENDICITIS WITH LOCALIZED PERITONITIS Assessment/Plan Microbiology Laboratory Tests 11/04/17 11/05/17 11/05/17 17:10 06:15 06:15 WBC 24.0 H Hgb 11.1 L Hct 34.2 L Plt Count 451 H Neutrophils % 94.7 H Lymphocytes % 2.6 L D Monocytes % 2.7 L BUN 15 Creatinine 1.5 H Creat Clearance w eGFR 50.84 Ur Leukocyte Esterase Negative Urine WBC (Auto) 3 Urine RBC (Auto) 1 Assessment Acute appendicitis with washout laparotomy purulent drainage as noted in op note Plan Zosyn 4.5grs q 8 H Tommy ARIAS
--- NOTE | 2017-11-05 08:22 | CONS ---
DATE OF CONSULTATION: HISTORY: This is a 42-year-old male who came to the emergency room yesterday with chief complaint of worsening abdominal pain and pain noted in the right lower quadrant as well as diffusely. He had an abdominal CAT scan performed following admission, which showed right lower quadrant mesenteric edema in association with bowel wall edema involving several distal ileal loops. The appendix appeared slightly thickened. Surgical consultation was obtained, and the patient was taken to the operating room where a laparotomy was performed with lysis of adhesions, appendectomy, findings of an intra-abdominal abscess, and abdominal washout performed with pus noted all over the lower abdomen as well as an inflamed appendix. I am asked to see the patient now for further antibiotic management postoperatively. He has been afebrile during this time but has been requiring a BiPAP mask to maintain his oxygen saturations. His O2 had dropped as low as 88. PAST MEDICAL HISTORY: Includes prior history of kidney stones and hypertension. MEDICATIONS: Currently Zosyn. ALLERGIES: ACETAMINOPHEN, LATEX, and OXYCODONE. SOCIAL HISTORY: He is engaged. Works as a computer systems designer. No reported drug or alcohol use. HIV tested recently negative. FAMILY HISTORY: Noncontributory. REVIEW OF SYSTEMS: Respiratory: Shortness of breath. No cough, hemoptysis. Cardiac: No history of chest pain, palpitations, syncope, murmur. Gastrointestinal: Postoperative laparotomy. Genitourinary: No dysuria, hematuria, urinary frequency. PHYSICAL EXAMINATION: General: Reveals an obese male weighing 400 pounds. Vital Signs: The temperature is 97.9, pulse 70, blood pressure 145/86, respirations 17, O2 saturation 97% on a BiPAP mask 50%. Neck: Supple with no adenopathy. Lungs: With diminished breath sounds bilaterally. Heart: S1, S2. Regular rhythm without audible murmur. Abdomen: Postoperative distended with a midline laparotomy incision and a drain noted in the right lower quadrant. Postoperative tenderness as expected. Extremities: No clubbing, cyanosis, or edema. LABORATORY DATA: The white count is 24,000 with a hemoglobin of 11.1, platelets 451, BUN 15, creatinine 1.5. Liver enzymes within normal limits. Urinalysis: 3 RBCs, 1 WBC, negative leukocyte esterase. Blood culture, urine culture pending. The patient has not at this point had a chest x-ray performed. ASSESSMENT: A 42-year-old male presents with blood pressure. Taken to the operating room status post laparotomy with abdominal washout with appendicitis with purulent drainage/peritonitis. Blood and urine cultures pending. Advised empiric therapy with piperacillin and tazobactam 4.5 g every 8 hours. Await cultures. Obtain a CRP. Order a chest x-ray. The case was discussed with his primary care provider. GAYLE BARTON M.D. [id number]
--- NOTE | 2017-11-05 08:47 | PN ---
Progress Note (short form) - Note Progress Note: Pulm/CCM 24hr: -stable overnight -Wbc uptrending slightly but afebrile -on Zosyn Vital Signs Temp 98.2 F 11/05/17 08:00 Pulse 78 11/05/17 08:29 Resp 16 11/05/17 08:00 BP 163/91 11/05/17 08:00 Pulse Ox 95 11/05/17 08:29 Intake & Output 11/04/17 11/04/17 11/05/17 11:59 23:59 11:59 Intake Total 1800 1000 Output Total 725 380 Balance 1075 620 Weight 181.437 kg 181.9 kg Intake: IV 1800 1000 LACTATED RINGERS SOLUTION 1000 1,000 ml In 1,000 ml @ 125 mls/hr IV ASDIR BRIAN Rx#:[id number] Output: Drainage 325 30 Right Abdomen 125 30 Urine 400 350 [place] 350 Other: Voiding Method Indwelling Catheter Indwelling Catheter Height 6 ft 4 in Body Mass Index (BMI) 48.6 Weight Measurement Method Built in Bedscale Built in Bedscale Weight Measurement Method Est/Stated by Patient CBC, BMP 11/05/17 06:15 11/05/17 06:15 35CCT Assessment/Plan Assessment: 42 y/o man with h/o morbid obesity, HTN, kidney stones, + tobacco and likely undiagnosed sleep apnea who presented with RLQ abdominal pain and nausea found to have appendicitis now s/p open appendectomy and wash out, admitted to ICU for post-op monitoring Plan: GI: appendicitis c/b peritonitis now s/p open appendectomy and wash out -plan per surgery -NPO, advance as tolerate -wound care -pain control -abx as outlined below -PPI ID: appendicitis c/b peritonitis s/p appendectomy and wash out -continue zosyn per ID -monitor WBC, fever trend -close monitoring - at high risk for sepsis -ID consult Pulm: likely undiagnosed sleep apnea -continue CPAP -titrate O2 as needed -pulm consult in am CV: HTN at baseline -close hemodynamic monitoring - pt at risk for sepsis -resume anti-HTN meds as appropriate Renal: Creat slightly elevated on admission, unknown baseline -trend creat, stable but not downtrending -renally dose meds as indicated -continue IVF PPX: -PPI -SCDs Dispo: FULL, ok for floor today Ronaldo Santamaria ACNP [id number] [id number]
[2017-11-05] MEDS ORDERED: PT OWN MED DRAWER 7, Y5N ONE (08:59)
[2017-11-05] MEDS ORDERED: morphine CARPU-JECT 2 MG/1 ML DISP.SYRIN IVPUSH PRN (09:58)
[2017-11-05] MEDS ORDERED: PIPERACILLIN/TAZOB 4.5 GM 4.5 GM in DEXTROSE 5%-WATER - 100 ML IVPB SCH (10:00)
[2017-11-05] MEDS ORDERED: FAMOTIDINE 20 MG/50 ML IVPB 20 MG/50 ML MG IVPB SCH ×2 (10:00→22:00)
[2017-11-05] MEDS ORDERED: PIPERACILLIN/TAZOB 4.5 GM 4.5 GM/100 ML BAG IVPB SCH (10:00)
[2017-11-05] MEDS ORDERED: MUPIROCIN 2% TOPICAL OINTMENT FOR DECOLONIZATION NS SCH (10:00)
[2017-11-05] MEDS ORDERED: MORPHINE SULFATE 10 MG/1 ML *VIAL IVPUSH PRN (10:05)
--- NOTE | 2017-11-05 10:22 | PN ---
Physical Exam: SUBJECTIVE: Patient seen and examined in ICU. He denies pain, fever chills. He is very thirsty OBJECTIVE: Vital Signs Period Temp Pulse Resp BP Sys/Abraham Pulse Ox Last 24 Hr 97.8 F-98.9 F 64-110 14-30 120-163/48-99 88-100 PE Neuro: alert, awake,cn 2-12intact HEENT: R nasal airway Pulm: Clear anteriorly CV: s1 s2 rrr no mrg Abd: Abd incision dressed + GENA drain yellow mildly cloudy pus drainage : jason,hilton colored urine Ext: no le edema, warm Laboratory Results - last 24 hr 11/04/17 11/05/17 11/05/17 22:15 06:00 06:15 WBC RBC Hgb Hct MCV MCH MCHC RDW Plt Count MPV Neutrophils % Neutrophils % (Manual) Band Neutrophils % Lymphocytes % Lymphocytes % (Manual) Monocytes % Monocytes % (Manual) Eosinophils % Eosinophils % (Manual) Basophils % Basophils % (Manual) Myelocytes % (Man) Promyelocytes % (Man) Nucleated RBC % Metamyelocytes Hypochromia Platelet Estimate Polychromasia Poikilocytosis Anisocytosis Microcytosis Macrocytosis ESR 33 H PT with INR INR Sodium 138 Potassium 4.4 Chloride 103 Carbon Dioxide 24 Anion Gap 11 BUN 13 Creatinine 1.5 H Creat Clearance w eGFR 50.84 Random Glucose 154 H D Calcium 8.2 L Total Bilirubin 1.2 H D AST 6 L D ALT 14 D Alkaline Phosphatase 101 C-Reactive Protein Cancelled Total Protein 6.9 Albumin 2.9 L Lipase Urine Color Urine Appearance Urine pH Ur Specific [place] Urine Protein Urine Glucose (UA) Urine Ketones Urine Blood Urine Nitrite Urine Bilirubin Urine Urobilinogen Ur Leukocyte Esterase Urine WBC (Auto) Urine RBC (Auto) Urine Mucus Blood Type Antibody Screen 11/05/17 11/05/17 06:15 06:15 WBC 24.0 H RBC 4.33 Hgb 11.1 L Hct 34.2 L MCV 79.0 L MCH 25.6 L MCHC 32.4 RDW 15.6 Plt Count 451 H MPV 6.9 L Neutrophils % 94.7 H Neutrophils % (Manual) Band Neutrophils % Lymphocytes % 2.6 L D Lymphocytes % (Manual) Monocytes % 2.7 L Monocytes % (Manual) Eosinophils % 0.0 Eosinophils % (Manual) Basophils % 0.0 Basophils % (Manual) Myelocytes % (Man) Promyelocytes % (Man) Nucleated RBC % Metamyelocytes Hypochromia Platelet Estimate Polychromasia Poikilocytosis Anisocytosis Microcytosis Macrocytosis ESR PT with INR INR Sodium 138 Potassium 4.5 Chloride 103 Carbon Dioxide 24 Anion Gap 11 BUN 15 Creatinine 1.5 H Creat Clearance w eGFR 50.84 Random Glucose 137 H Calcium 8.4 L Total Bilirubin 1.3 H AST 6 L ALT 13 Alkaline Phosphatase 91 C-Reactive Protein 18.2 H Total Protein 6.5 Albumin 2.6 L Lipase Urine Color Urine Appearance Urine pH Ur Specific [place] Urine Protein Urine Glucose (UA) Urine Ketones Urine Blood Urine Nitrite Urine Bilirubin Urine Urobilinogen Ur Leukocyte Esterase Urine WBC (Auto) Urine RBC (Auto) Urine Mucus Blood Type Antibody Screen Active Medications Generic Name Dose Route Start Last Admin Trade Name Freq PRN Reason Stop Dose Admin Chlorhexidine Gluconate 1 applic 11/05/17 22:00 Hibiclens For Decolonization - TP HS BRIAN Famotidine/Sodium Chloride 20 mg in 50 mls @ 100 mls/hr 11/05/17 10:00 09:17 Pepcid 20 Mg Premixed Ivpb - IVPB 100 mls/hr BID BRIAN Administration Sodium Chloride 1,000 mls @ 83 mls/hr 11/05/17 08:00 11/05/17 08:39 Normal Saline - IV 83 mls/hr ASDIR BRIAN Administration Piperacillin Sod/Tazobactam 100 mls @ 200 mls/hr 11/05/17 10:00 11/05/17 09: 17 Sod 4.5 gm/ Dextrose IVPB 200 mls/hr Q8H-IV BRIAN Administration Morphine Sulfate 2 mg 11/05/17 10:05 Morphine Injection - IVPUSH Q3H PRN PAIN LEVEL 4 - 6 Mupirocin 1 applic 11/05/17 10:00 Bactroban Ointment (For Decolonization) - NS 11/10/17 09:59 BID BRIAN Assessment: 42 year old male with pmhx of HTN, kidney stones, active smoker, undiagnosed sleep apnea admitted with RLQ pain and nausea found to have appendicitis now s/p open appendectomy and wash out 11/04. Plan: 1. Sepsis d/t appendicitis w/ intraabdominal abscess - S/p appendectomy with wash out - Continue zosyn - Post op care per surgery - NPO - Continue IVF 2. ISELA? - CCC/pulm seeing - CPAP HS 3. HTN - Resume lisinopril and norvasc as needed 4. CORTNEY - Cr unchanged - Continue IVF - Baseline cr unknown - Obtain UA 5. Thrombocytosis - Downtrending 6. DVT - Heparin sq Problem List - Problems (1) Abdominal pain Code(s): R10.9 - UNSPECIFIED ABDOMINAL PAIN Qualifiers: Abdominal location: unspecified location Qualified Code(s): R10.9 - Unspecified abdominal pain (2) Leukocytosis Code(s): D72.829 - ELEVATED WHITE BLOOD CELL COUNT, UNSPECIFIED Qualifiers: Leukocytosis type: unspecified Qualified Code(s): D72.829 - Elevated white blood cell count, unspecified Visit type - Emergency Visit Emergency Visit: Yes ED Registration Date: 11/04/17 Care time: The patient presented to the Emergency Department on the above date and was hospitalized for further evaluation of their emergent condition. - New Patient This patient is new to me today: No - Critical Care Critical Care patient: No
[2017-11-05] MEDS: SODIUM CHLORIDE 1,000 ML IV SCH ×2 (13:10→13:59)
[2017-11-05] MEDS: MORPHINE SULFATE 10 MG/1 ML *VIAL IVPUSH PRN ×2 (14:26→19:11)
--- NOTE | 2017-11-05 16:21 | PN ---
Progress Note (short form) - Note Progress Note: POD #1 - s/p open appendectomy/ lysis of adhesions under general anesthesia. VSS. Pt. doing well, sitting up comfortably in bed. Breathing well on O2 nasal cannula. No apparent anesthetic complications noted. Continue current care.
--- NOTE | 2017-11-05 17:59 | PN ---
Progress Note, Physician History of Present Illness: 42yo male PMH HTN, obesity presents with right lower quadrant abdominal pain for about 24 hours. doing well post operatively, complains of hunger. has been afebrile. and he is consuming ice chips, jason was discontinued this morning. - Current Medication List Current Medications: Active Medications Famotidine/Sodium Chloride (Pepcid 20 Mg Premixed Ivpb -) 20 mg in 50 mls @ 100 mls/hr IVPB BID BRIAN Piperacillin Sod/Tazobactam (Sod 4.5 gm/ Dextrose) 100 mls @ 200 mls/hr IVPB Q8H-IV BRIAN Sodium Chloride (Normal Saline -) 1,000 mls @ 83 mls/hr IV ASDIR BRIAN Last Admin: 11/05/17 13:59 Dose: 83 mls/hr Morphine Sulfate (Morphine Injection -) 2 mg IVPUSH Q3H PRN PRN Reason: PAIN LEVEL 4 - 6 Last Admin: 11/05/17 14:26 Dose: 2 mg - Objective Vital Signs: Vital Signs Temperature 98.4 F 11/05/17 15:04 Pulse Rate 87 11/05/17 15:04 Respiratory Rate 22 11/05/17 15:04 Blood Pressure 140/91 11/05/17 15:04 O2 Sat by Pulse Oximetry (%) 96 11/05/17 08:48 Vital Signs Period Temp Pulse Resp BP Sys/Abraham Pulse Ox Last 24 Hr 97.8 F-98.9 F 64-104 14-30 120-163/48-91 88-98 Intake & Output 11/05/17 11/05/17 11/05/17 07:59 15:59 23:59 Intake Total 1000 500 Output Total 380 550 Balance 620 -50 Weight 401 lb 0.333 oz Intake: IV 1000 400 LACTATED RINGERS SOLUTION 1000 1,000 ml In 1,000 ml @ 125 mls/hr IV ASDIR BRIAN Rx#:[id number] Normal Saline - 1,000 ml 400 @ 83 mls/hr IV ASDIR BRIAN Rx#:[id number] IVPB 100 Output: Drainage 30 50 Right Abdomen 30 50 Urine 350 500 Jason 350 400 Void 100 Other: Voiding Method Indwelling Catheter Indwelling Catheter Weight Measurement Method Built in [facility] Constitutional: Yes: No Distress, Calm, Obese Eyes: Yes: Conjunctiva Clear, EOM Intact HENT: Yes: Atraumatic, Normocephalic Neck: Yes: Supple, Trachea Midline Cardiovascular: Yes: Regular Rate and Rhythm, S1, S2. No: Murmur Respiratory: Yes: Regular, CTA Bilaterally Gastrointestinal: Yes: Normal Bowel Sounds, Soft, Abdomen, Obese, Tenderness ( aleksandr incsional), Other ...Rectal Exam: Yes: Deferred Genitourinary: No: CVA Tenderness - Left, CVA Tenderness - Right Musculoskeletal: No: Muscle Pain, Muscle Weakness Extremities: No: Cool, Cyanosis Wound/Incision: Yes: Clean/Dry, Dressing Dry and Intact Neurological: Yes: Alert, Oriented Psychiatric: Yes: Alert, Oriented Labs: CBC, BMP 11/05/17 06:15 11/05/17 06:15 INR, PTT INR 1.25 (0.82-1.09) H 11/04/17 22:15 Problem List - Problems (1) Appendicitis, acute, with peritonitis Assessment/Plan: 42yo male with PMH HTN morbid obesity, appendicitis with peritonitits, POD#1 s/ p Laprotomy and appendectomy, WBC persistently 24, minimal drainage, no nausea. jason discontinued. Clear liquids for dinner may be advanced as tolerated IVF hydration Continue IV antibiotics Repeat labs Incentive spirometry continue CPAP Code(s): K35.3 - ACUTE APPENDICITIS WITH LOCALIZED PERITONITIS (2) Right lower quadrant abdominal pain Code(s): R10.31 - RIGHT LOWER QUADRANT PAIN (3) HTN (hypertension) Code(s): I10 - ESSENTIAL (PRIMARY) HYPERTENSION Qualifiers: Hypertension type: essential hypertension Qualified Code(s): I10 - Essential (primary) hypertension (4) Morbid obesity with BMI of 45.0-49.9, adult Code(s): E66.01 - MORBID (SEVERE) OBESITY DUE TO EXCESS CALORIES; Z68.42 - BODY MASS INDEX (BMI) 45.0-49.9, ADULT (5) Leukocytosis Code(s): D72.829 - ELEVATED WHITE BLOOD CELL COUNT, UNSPECIFIED Qualifiers: Leukocytosis type: unspecified Qualified Code(s): D72.829 - Elevated white blood cell count, unspecified
[2017-11-05] MEDS: PIPERACILLIN/TAZOB 4.5 GM 4.5 GM in DEXTROSE 5%-WATER - 100 ML IVPB SCH (20:24)
[2017-11-05] MEDS ORDERED: CHLORHEXIDINE GLUCONATE 4% CLEANSER FOR DECOLONIZATION TP SCH (22:00)
[2017-11-06] MEDS: PIPERACILLIN/TAZOB 4.5 GM 4.5 GM in DEXTROSE 5%-WATER - 100 ML IVPB SCH ×3 (02:54→17:49)
[2017-11-06] MEDS: SODIUM CHLORIDE 1,000 ML IV SCH (05:24)
[2017-11-06] MEDS: MORPHINE SULFATE 10 MG/1 ML *VIAL IVPUSH PRN ×2 (06:40→20:09)
[2017-11-06 07:47] LABS: BASO % 0.3 % (0-2.0); EOS % 0.2 % (0-4.5); HEMOGLOBIN 11.2 GM/dL (11.7-16.9); LYMPH % 5.1 % (8-40); MCH 25.2 pg (25.7-33.7); MCHC 31.9 g/dl (32.0-35.9); MEAN CELL VOLUME 79.2 fl (80-96); MEAN PLT VOLUME 7.2 fl (7.5-11.1); MONO % 5.7 % (3.8-10.2); NEUT % 88.7 % (42.8-82.8); PLATELET COUNT 456 K/MM3 (134-434); RBC 4.42 M/mm3 (4.00-5.60); RDW 15.6 % (11.9-15.9); WHITE BLOOD COUNT 25.3 K/mm3 (4.0-10.0)
[2017-11-06 08:11] LABS: ALBUMIN 2.6 g/dl (3.4-5.0); ANION GAP 11 (8-16); BLOOD UREA NITROGEN 14 mg/dL (7-18); CALCIUM 8.7 mg/dL (8.5-10.1); CHLORIDE 103 mmol/L (98-107); CO2 25 mmol/L (21-32); CREATININE 1.3 mg/dL (0.7-1.3); GLUCOSE,RANDOM 91 mg/dL (74-106); SGOT/AST 6 U/L (15-37); SGPT/ALT 13 U/L (12-78); SODIUM 139 mmol/L (136-145)
[2017-11-06 08:14] LABS: ALK PHOS 88 U/L (45-117); BILIRUBIN,TOTAL 0.7 mg/dL (0.2-1.0); TOT PROT 6.7 g/dl (6.4-8.2)
[2017-11-06] MEDS ORDERED: MORPHINE SULFATE 10 MG/1 ML *VIAL IVPUSH PRN (08:41)
[2017-11-06] MEDS ORDERED: amLODIPine BESYLATE 5 MG TABLET (FP) PO SCH (10:00)
[2017-11-06] MEDS ORDERED: LISINOPRIL 20 MG TABLET (FP) PO SCH (10:00)
--- NOTE | 2017-11-06 11:26 | PN ---
Progress Note (short form) - Note Progress Note: PULMONARY BRIEF NOTE DISCUSSED PSG TO R/O OSAS I HAVE GIVEN THE PATIENT OUR CONTACT INFO HE WILL CALL FOR AN OUTPATIENT EVALUATION. THANK YOU Destiny DUMONT MD
--- NOTE | 2017-11-06 12:04 | PN ---
Progress Note, Physician History of Present Illness: 42yo male PMH HTN, obesity presents with right lower quadrant abdominal pain for about 24 hours. doing well post operatively, complains of hunger. has been afebrile. and he is consuming ice chips, jason was discontinued this morning. - Current Medication List Current Medications: Active Medications Amlodipine Besylate (Norvasc -) 5 mg PO DAILY BRIAN Piperacillin Sod/Tazobactam (Sod 4.5 gm/ Dextrose) 100 mls @ 200 mls/hr IVPB Q8H-IV BRIAN Last Admin: 11/06/17 10:07 Dose: 200 mls/hr Lisinopril (Prinivil) 20 mg PO DAILY BRIAN Morphine Sulfate (Morphine Injection -) 4 mg IVPUSH Q3H PRN PRN Reason: PAIN LEVEL 4 - 6 Last Admin: 11/06/17 11:24 Dose: 4 mg - Objective Vital Signs: Vital Signs Temperature 98.1 F 11/06/17 09:00 Pulse Rate 102 H 11/06/17 09:00 Respiratory Rate 20 11/06/17 09:00 Blood Pressure 155/97 11/06/17 09:00 O2 Sat by Pulse Oximetry (%) 99 11/06/17 11:46 Vital Signs Period Temp Pulse Resp BP Sys/Abraham Pulse Ox Last 24 Hr 98 F-98.8 F 76-96 18-20 140-157/82-106 95-99 Constitutional: Yes: No Distress, Calm, Obese Eyes: Yes: Conjunctiva Clear, EOM Intact HENT: Yes: Atraumatic, Normocephalic Neck: Yes: Supple, Trachea Midline Cardiovascular: Yes: Regular Rate and Rhythm, S1, S2 Respiratory: Yes: Regular, CTA Bilaterally Gastrointestinal: Yes: Normal Bowel Sounds, Soft, Abdomen, Obese, Tenderness ( periicisonal), Other (GENA drain in RLQ) Genitourinary: No: CVA Tenderness - Left, CVA Tenderness - Right Musculoskeletal: No: Muscle Pain, Muscle Weakness Extremities: No: Cool, Cyanosis Edema: No Peripheral Pulses WNL: Yes Peripheral Pulses: Left Radial: 2+, Right Radial: 2+, Left Doralis Pedis: 2+, Right Dorsalis Pedis: 2+ Integumentary: No: Jaundice, Rash Wound/Incision: Yes: Clean/Dry, [place] Intact, Unapproximated, Other (drain in RLQ qith scan serosanguinous drainage 50+30) Neurological: Yes: Alert, Oriented Psychiatric: Yes: Alert, Oriented Labs: CBC, BMP 11/06/17 06:00 11/06/17 06:00 INR, PTT INR 1.25 (0.82-1.09) H 11/04/17 22:15 Problem List - Problems (1) Appendicitis, acute, with peritonitis Assessment/Plan: 42yo male with PMH HTN morbid obesity, appendicitis with peritonitits, POD#2 s/ p Laprotomy and appendectomy, WBC persistently 24, minimal drainage, no nausea. Tolerating diet. may be advanced as tolerated IVF hydration Continue IV antibiotics Repeat labs Incentive spirometry continue CPAP at night OOB and ambulate Code(s): K35.3 - ACUTE APPENDICITIS WITH LOCALIZED PERITONITIS (2) Right lower quadrant abdominal pain Code(s): R10.31 - RIGHT LOWER QUADRANT PAIN (3) HTN (hypertension) Code(s): I10 - ESSENTIAL (PRIMARY) HYPERTENSION Qualifiers: Hypertension type: essential hypertension Qualified Code(s): I10 - Essential (primary) hypertension (4) Morbid obesity with BMI of 45.0-49.9, adult Code(s): E66.01 - MORBID (SEVERE) OBESITY DUE TO EXCESS CALORIES; Z68.42 - BODY MASS INDEX (BMI) 45.0-49.9, ADULT (5) Leukocytosis Code(s): D72.829 - ELEVATED WHITE BLOOD CELL COUNT, UNSPECIFIED Qualifiers: Leukocytosis type: unspecified Qualified Code(s): D72.829 - Elevated white blood cell count, unspecified
--- NOTE | 2017-11-06 13:16 | PN ---
Physical Exam: SUBJECTIVE: Patient seen and examined. He is oob to chair, still with abdominal incision pain. Tolerated clears OBJECTIVE: Vital Signs Period Temp Pulse Resp BP Sys/Abraham Pulse Ox Last 24 Hr 97.8 F-98.4 F 77-102 18-22 140-175/72-97 97-99 PE Neuro: alert, awake,cn 2-12intact Pulm: basilar crackles CV: s1 s2 rrr no mrg Abd: Abd incision dressed RLQ GENA drain with serosanguinous outpt Ext: no le edema, warm Laboratory Results - last 24 hr 11/06/17 11/06/17 06:00 06:00 WBC 25.3 H RBC 4.42 Hgb 11.2 L Hct 35.0 L MCV 79.2 L MCH 25.2 L MCHC 31.9 L RDW 15.6 Plt Count 456 H MPV 7.2 L Neutrophils % 88.7 H Lymphocytes % 5.1 L D Monocytes % 5.7 D Eosinophils % 0.2 D Basophils % 0.3 D Sodium 139 Potassium 4.0 Chloride 103 Carbon Dioxide 25 Anion Gap 11 BUN 14 Creatinine 1.3 Creat Clearance w eGFR 59.97 Random Glucose 91 D Calcium 8.7 Total Bilirubin 0.7 D AST 6 L ALT 13 Alkaline Phosphatase 88 Total Protein 6.7 Albumin 2.6 L Active Medications Generic Name Dose Route Start Last Admin Trade Name Freq PRN Reason Stop Dose Admin Amlodipine Besylate 10 mg 11/06/17 13:15 Norvasc - PO DAILY BRIAN Piperacillin Sod/Tazobactam 100 mls @ 200 mls/hr 11/05/17 18:00 11/06/17 10: 07 Sod 4.5 gm/ Dextrose IVPB 200 mls/hr Q8H-IV BRIAN Administration Metoprolol Tartrate 50 mg 11/06/17 13:15 Lopressor - PO BID BRIAN Morphine Sulfate 4 mg 11/06/17 08:41 11/06/17 11:24 Morphine Injection - IVPUSH 4 mg Q3H PRN Administration PAIN LEVEL 4 - 6 Microbiology 11/04/17 17:10 Urine Culture - Final Urine - Urine Clean Catch NO GROWTH OBTAINED 11/04/17 18:25 Blood Culture - Preliminary Blood - Peripheral Venous NO GROWTH OBTAINED AFTER 24 HOURS, INCUBATION TO CONTINUE FOR 4 DAYS. 11/04/17 18:25 Blood Culture - Preliminary Blood - Peripheral Venous NO GROWTH OBTAINED AFTER 24 HOURS, INCUBATION TO CONTINUE FOR 4 DAYS. Assessment: 42 year old male with pmhx of HTN, kidney stones, active smoker, undiagnosed sleep apnea admitted with RLQ pain and nausea found to have appendicitis now s/p open appendectomy and wash out 11/04. Plan: 1. Sepsis d/t appendicitis w/ intraabdominal abscess - S/p appendectomy with wash out - Continue Zosyn - Advance to po diet - Incentive spirometry, oob ambulate - Surgery following 2. ISELA? - CCC/pulm seeing - CPAP HS 3. HTN - Does not take lisinopril - Metoprolol 50mg BID - Norvasc 10mg daily 4. CORTNEY - Improved - Stop IVF 5. Thrombocytosis - Likely reactive - Downtrending 6. DVT - Heparin sq Problem List - Problems (1) Abdominal pain Code(s): R10.9 - UNSPECIFIED ABDOMINAL PAIN Qualifiers: Abdominal location: unspecified location Qualified Code(s): R10.9 - Unspecified abdominal pain (2) Leukocytosis Code(s): D72.829 - ELEVATED WHITE BLOOD CELL COUNT, UNSPECIFIED Qualifiers: Leukocytosis type: unspecified Qualified Code(s): D72.829 - Elevated white blood cell count, unspecified Visit type - Emergency Visit Emergency Visit: Yes ED Registration Date: 11/04/17 Care time: The patient presented to the Emergency Department on the above date and was hospitalized for further evaluation of their emergent condition. - New Patient This patient is new to me today: No - Critical Care Critical Care patient: No
[2017-11-06] MEDS ORDERED: oxyCODONE HCL 5 MG TABLET PO ONE (14:00)
[2017-11-06] MEDS ORDERED: MAGNESIUM HYDROX 2400MG/30ML ORAL SUSPENSION 30 ML CUP PO ONE (14:00)
[2017-11-06] MEDS: amLODIPine BESYLATE 5 MG TABLET (FP) PO SCH (14:38)
[2017-11-06] MEDS: METOPROLOL TARTRATE 50 MG TABLET (FP) PO SCH ×2 (14:39→21:16)
[2017-11-06] MEDS ORDERED: PT OWN MED DRAWER 7, Y5N ONE (17:35)
[2017-11-06] MEDS ORDERED: ACETAMINOPHEN 325 MG TABLET (FP) PO PRN (19:35)
[2017-11-06] MEDS: DOCUSATE SODIUM 100 MG CAPSULE (FP) PO SCH (21:16)
[2017-11-07] MEDS ORDERED: PT OWN MED DRAWER 7, Y5N ONE ×3 (01:48→18:34)
[2017-11-07] MEDS: PIPERACILLIN/TAZOB 4.5 GM 4.5 GM in DEXTROSE 5%-WATER - 100 ML IVPB SCH ×3 (01:54→18:39)
[2017-11-07] MEDS: oxyCODONE HCL 5 MG TABLET PO PRN ×2 (01:58→16:05)
[2017-11-07] MEDS: MORPHINE SULFATE 10 MG/1 ML *VIAL IVPUSH PRN ×3 (07:47→23:17)
[2017-11-07 08:01] LABS: HEMATOCRIT 34.1 % (35.4-49); HEMOGLOBIN 10.7 GM/dL (11.7-16.9); MCH 25.1 pg (25.7-33.7); MCHC 31.4 g/dl (32.0-35.9); MEAN PLT VOLUME 7.1 fl (7.5-11.1); PLATELET COUNT 467 K/MM3 (134-434); RBC 4.26 M/mm3 (4.00-5.60); RDW 15.4 % (11.9-15.9); WHITE BLOOD COUNT 17.9 K/mm3 (4.0-10.0)
[2017-11-07 08:08] LABS: ANION GAP 8 (8-16); BLOOD UREA NITROGEN 17 mg/dL (7-18); CHLORIDE 104 mmol/L (98-107); CO2 27 mmol/L (21-32); POTASSIUM 4.1 mmol/L (3.5-5.1); SODIUM 139 mmol/L (136-145)
[2017-11-07 08:11] LABS: CREATININE 1.5 mg/dL (0.7-1.3); GLUCOSE,RANDOM 75 mg/dL (74-106)
--- NOTE | 2017-11-07 09:01 | PN ---
Progress Note (short form) - Note Progress Note: Subjective: The patient was seen and examined at the bedside, he reports some abdominal pain. He denies passing gas but states he "feels like it's coming". Tolerated Oxycodone, denies any itching, swelling, difficulty breathing Patient did not eat his breakfast Current Medications Generic Name Dose Route Start Last Admin Trade Name Freq PRN Reason Stop Dose Admin Acetaminophen 325 mg 11/06/17 19:35 Tylenol - PO Q4H PRN PAIN LEVEL 4 - 6 Amlodipine Besylate 10 mg 11/06/17 13:15 11/06/17 14:38 Norvasc - PO 10 mg DAILY BRIAN Administration Docusate Sodium 100 mg 11/06/17 22:00 11/06/17 21:16 Colace - PO 100 mg BID BRIAN Administration Piperacillin Sod/Tazobactam 100 mls @ 200 mls/hr 11/05/17 18:00 11/07/17 01: 54 Sod 4.5 gm/ Dextrose IVPB 200 mls/hr Q8H-IV BRIAN Administration Metoprolol Tartrate 50 mg 11/06/17 13:15 11/06/17 21:16 Lopressor - PO 50 mg BID BRIAN Administration Morphine Sulfate 4 mg 11/06/17 19:38 11/07/17 07:47 Morphine Injection - IVPUSH 4 mg Q3H PRN Administration PAIN LEVEL 7 - 10 Oxycodone HCl 5 mg 11/06/17 19:35 11/07/17 01:58 Roxicodone - PO 5 mg Q4H PRN Administration PAIN LEVEL 4 - 6 Objective: Vital Signs Period Temp Pulse Resp BP Sys/Abraham Pulse Ox Last 24 Hr 98 F-98.8 F 76-96 18-20 140-157/82-106 95-99 Physical Exam: General: NAD, A&Ox3 Lungs: Decreased breath sounds anteriorly Heart: RRR, S1S2 Abd: Midline abdominal dressing with serous dried fluid. RLQ GENA with serous fluid Ext: Warm, well-perfused. 2+ DP/PT bilaterally CBCD WBC 17.9 K/mm3 (4.0-10.0) H 11/07/17 06:30 RBC 4.26 M/mm3 (4.00-5.60) 11/07/17 06:30 Hgb 10.7 GM/dL (11.7-16.9) L 11/07/17 06:30 Hct 34.1 % (35.4-49) L 11/07/17 06:30 MCV 80.0 fl (80-96) 11/07/17 06:30 MCHC 31.4 g/dl (32.0-35.9) L 11/07/17 06:30 RDW 15.4 % (11.9-15.9) 11/07/17 06:30 Plt Count 467 K/MM3 (134-434) H 11/07/17 06:30 MPV 7.1 fl (7.5-11.1) L 11/07/17 06:30 CMP Sodium 139 mmol/L (136-145) 11/07/17 06:30 Potassium 4.1 mmol/L (3.5-5.1) 11/07/17 06:30 Chloride 104 mmol/L (98-107) 11/07/17 06:30 Carbon Dioxide 27 mmol/L (21-32) 11/07/17 06:30 Anion Gap 8 (8-16) 11/07/17 06:30 BUN 17 mg/dL (7-18) D 11/07/17 06:30 Creatinine 1.5 mg/dL (0.7-1.3) H 11/07/17 06:30 Creat Clearance w eGFR 59.97 (>60) 11/06/17 06:00 Random Glucose 75 mg/dL (74-106) 11/07/17 06:30 Calcium 8.0 mg/dL (8.5-10.1) L 11/07/17 06:30 Total Bilirubin 0.7 mg/dL (0.2-1.0) D 11/06/17 06:00 AST 6 U/L (15-37) L 11/06/17 06:00 ALT 13 U/L (12-78) 11/06/17 06:00 Alkaline Phosphatase 88 U/L (45-117) 11/06/17 06:00 Total Protein 6.7 g/dl (6.4-8.2) 11/06/17 06:00 Albumin 2.6 g/dl (3.4-5.0) L 11/06/17 06:00 Microbiology 11/04/17 18:25 Blood - Peripheral Venous Blood Culture - Preliminary NO GROWTH OBTAINED AFTER 48 HOURS, INCUBATION TO CONTINUE FOR 3 DAYS. 11/04/17 18:25 Blood - Peripheral Venous Blood Culture - Preliminary NO GROWTH OBTAINED AFTER 48 HOURS, INCUBATION TO CONTINUE FOR 3 DAYS. 11/04/17 17:10 Urine - Urine Clean Catch Urine Culture - Final NO GROWTH OBTAINED Assessment: This is a 42 year old male with PMHx of HTN, renal calculi, active cigarette smoker, likely undiagnosed sleep apnea who presented to the ED with RLQ pain and nausea. Plan: 1) Sepsis 2/2 appendicitis with intraabdominal abscess - S/p diagnositic laparoscopy, laparotomy, lysis of adhesions, appendectomy and abdominal washout on 11/04 - Continue Zosyn 4.5mg q8h - WBC trending down - Incentive spirometer - RLQ GENA with 120ml yesterday - Appreciate surgery consult - Appreciate ID consult 2) Likely undiagnosed sleep apnea - For PSG to r/o [facility]AS as outpatient - CPAP qhs - Appreciate pulmonary consult 3) CORTNEY - Cr 1.5 - Unknown baseline - Encourage po fluid intake - Continue to trend 4) HTN - Continue Lopressor - Continue Norvasc 5) Thrombocytosis - Reactive 2/2 sepsis? - Continue to trend, will need outpatient follow-up 6) F/E/N: - Sodium controlled diet - Monitor electrolytes 7) Prophylaxis: - Heparin 5,000u sq bid 8) Dispo: - Requires continued inpatient care CODE STATUS: FULL CODE Visit type - Emergency Visit Emergency Visit: Yes ED Registration Date: 11/04/17 Care time: The patient presented to the Emergency Department on the above date and was hospitalized for further evaluation of their emergent condition. - New Patient This patient is new to me today: Yes Date on this admission: 11/07/17 - Critical Care Critical Care patient: No
[2017-11-07] MEDS: amLODIPine BESYLATE 5 MG TABLET (FP) PO SCH (09:22)
[2017-11-07] MEDS: METOPROLOL TARTRATE 50 MG TABLET (FP) PO SCH ×2 (09:22→22:32)
[2017-11-07] MEDS: DOCUSATE SODIUM 100 MG CAPSULE (FP) PO SCH ×2 (09:22→22:32)
--- NOTE | 2017-11-07 10:41 | PN ---
Progress Note, Physician Chief Complaint: abdominal pain History of Present Illness: 42yo male PMH HTN, obesity presents with right lower quadrant abdominal pain for about 24 hours. doing well post operatively, complains of hunger. has been afebrile. and he is consuming ice chips, jason was discontinued this morning. - Current Medication List Current Medications: Active Medications Acetaminophen (Tylenol -) 325 mg PO Q4H PRN PRN Reason: PAIN LEVEL 4 - 6 Amlodipine Besylate (Norvasc -) 10 mg PO DAILY [facility] Last Admin: 11/07/17 09:22 Dose: 10 mg Docusate Sodium (Colace -) 100 mg PO BID [facility] Last Admin: 11/07/17 09:22 Dose: 100 mg Heparin Sodium (Porcine) (Heparin -) 5,000 unit SQ BID [facility] Piperacillin Sod/Tazobactam (Sod 4.5 gm/ Dextrose) 100 mls @ 200 mls/hr IVPB Q8H-IV [facility] Last Admin: 11/07/17 09:22 Dose: 200 mls/hr Metoprolol Tartrate (Lopressor -) 50 mg PO BID [facility] Last Admin: 11/07/17 09:22 Dose: 50 mg Morphine Sulfate (Morphine Injection -) 4 mg IVPUSH Q3H PRN PRN Reason: PAIN LEVEL 7 - 10 Last Admin: 11/07/17 07:47 Dose: 4 mg Oxycodone HCl (Roxicodone -) 5 mg PO Q4H PRN PRN Reason: PAIN LEVEL 4 - 6 Last Admin: 11/07/17 01:58 Dose: 5 mg - Objective Vital Signs: Vital Signs Temperature 98 F 11/07/17 05:41 Pulse Rate 77 11/07/17 05:41 Respiratory Rate 20 11/07/17 05:41 Blood Pressure 157/82 11/07/17 05:41 O2 Sat by Pulse Oximetry (%) 95 11/07/17 10:11 Vital Signs Period Temp Pulse Resp BP Sys/Abraham Pulse Ox Last 24 Hr 98 F-98.8 F 76-96 18-20 140-157/82-106 95-99 Constitutional: Yes: No Distress, Calm, Obese Eyes: Yes: Conjunctiva Clear, EOM Intact HENT: Yes: Atraumatic, Normocephalic Neck: Yes: Supple, Trachea Midline Cardiovascular: Yes: Regular Rate and Rhythm, S1, S2 Respiratory: Yes: Regular, CTA Bilaterally Gastrointestinal: Yes: Normal Bowel Sounds, Soft, Abdomen, Obese, Tenderness ( aleksandr incisional). No: Tenderness, Epigastrium, Tenderness, Rebound Genitourinary: No: CVA Tenderness - Left, CVA Tenderness - Right Musculoskeletal: No: Muscle Pain, Muscle Weakness Extremities: No: Cool, Cyanosis Edema: No Peripheral Pulses WNL: Yes Peripheral Pulses: Left Radial: 2+, Right Radial: 2+, Left Doralis Pedis: 2+, Right Dorsalis Pedis: 2+ Integumentary: No: Jaundice, Rash Wound/Incision: Yes: [place] Intact (packed with 1" iodoform packing, covered with a dry dressing), Dressing Removed, Unapproximated. No: Draining, Reddened Neurological: Yes: Alert Psychiatric: Yes: Alert, Oriented Labs: CBC, BMP 11/07/17 06:30 11/07/17 06:30 INR, PTT INR 1.25 (0.82-1.09) H 11/04/17 22:15 Problem List - Problems (1) Appendicitis, acute, with peritonitis Assessment/Plan: 42yo male with PMH HTN morbid obesity, acute on chronic appendicitis with peritonitits and intra-abdominal abscess, POD#3 s/p Laparotomy and appendectomy , minimal drainage, no nausea. Tolerating diet. WBC down to 17.9 may be advanced as tolerated Continue IV antibiotics Daily wound care Trend CBC, f/u ROMAN Incentive spirometry continue CPAP at night OOB and ambulate Code(s): K35.3 - ACUTE APPENDICITIS WITH LOCALIZED PERITONITIS (2) Right lower quadrant abdominal pain Code(s): R10.31 - RIGHT LOWER QUADRANT PAIN (3) HTN (hypertension) Code(s): I10 - ESSENTIAL (PRIMARY) HYPERTENSION Qualifiers: Hypertension type: essential hypertension Qualified Code(s): I10 - Essential (primary) hypertension (4) Morbid obesity with BMI of 45.0-49.9, adult Code(s): E66.01 - MORBID (SEVERE) OBESITY DUE TO EXCESS CALORIES; Z68.42 - BODY MASS INDEX (BMI) 45.0-49.9, ADULT (5) Leukocytosis Code(s): D72.829 - ELEVATED WHITE BLOOD CELL COUNT, UNSPECIFIED Qualifiers: Leukocytosis type: unspecified Qualified Code(s): D72.829 - Elevated white blood cell count, unspecified
--- NOTE | 2017-11-07 13:17 | PN ---
Progress Note, Physician History of Present Illness: OOB in chair No c/o abdominal pain No fever WBC improving - Current Medication List Current Medications: Active Medications Acetaminophen (Tylenol -) 325 mg PO Q4H PRN PRN Reason: PAIN LEVEL 4 - 6 Amlodipine Besylate (Norvasc -) 10 mg PO DAILY [facility] Last Admin: 11/07/17 09:22 Dose: 10 mg Docusate Sodium (Colace -) 100 mg PO BID [facility] Last Admin: 11/07/17 09:22 Dose: 100 mg Heparin Sodium (Porcine) (Heparin -) 5,000 unit SQ BID [facility] Piperacillin Sod/Tazobactam (Sod 4.5 gm/ Dextrose) 100 mls @ 200 mls/hr IVPB Q8H-IV [facility] Last Admin: 11/07/17 09:22 Dose: 200 mls/hr Metoprolol Tartrate (Lopressor -) 50 mg PO BID [facility] Last Admin: 11/07/17 09:22 Dose: 50 mg Morphine Sulfate (Morphine Injection -) 4 mg IVPUSH Q3H PRN PRN Reason: PAIN LEVEL 7 - 10 Last Admin: 11/07/17 07:47 Dose: 4 mg Oxycodone HCl (Roxicodone -) 5 mg PO Q4H PRN PRN Reason: PAIN LEVEL 4 - 6 Last Admin: 11/07/17 01:58 Dose: 5 mg - Objective Vital Signs: Vital Signs Temperature 98 F 11/07/17 05:41 Pulse Rate 77 11/07/17 05:41 Respiratory Rate 20 11/07/17 05:41 Blood Pressure 157/82 11/07/17 05:41 O2 Sat by Pulse Oximetry (%) 95 11/07/17 10:11 Constitutional: Yes: No Distress, Obese Cardiovascular: Yes: Regular Rate and Rhythm, S1, S2 Respiratory: Yes: CTA Bilaterally, Diminished Gastrointestinal: Yes: Normal Bowel Sounds, Soft, Abdomen, Obese. No: Tenderness Edema: Yes Labs: CBC, BMP 11/07/17 06:30 11/07/17 06:30 INR, PTT INR 1.25 (0.82-1.09) H 11/04/17 22:15 Assessment/Plan POD #3 laparotomy,appendectomy, ELIZABETH, washout Leukocytosis- improving Continue empiric zosyn
[2017-11-07] MEDS: HEPARIN NA (PORCINE) 5,000 UNITS/ML 1ML VIAL SQ SCH ×2 (16:05→22:32)
[2017-11-07] MEDS ORDERED: ONDANSETRON *ODT* 4 MG TABLET SL ONE (19:00)
[2017-11-08] MEDS ORDERED: PT OWN MED DRAWER 7, Y5N ONE ×4 (01:29→17:23)
[2017-11-08] MEDS: PIPERACILLIN/TAZOB 4.5 GM 4.5 GM in DEXTROSE 5%-WATER - 100 ML IVPB SCH ×3 (01:41→18:04)
[2017-11-08] MEDS: oxyCODONE HCL 5 MG TABLET PO PRN ×3 (01:42→18:03)
[2017-11-08 07:33] LABS: HEMATOCRIT 34.4 % (35.4-49); HEMOGLOBIN 10.9 GM/dL (11.7-16.9); MCHC 31.6 g/dl (32.0-35.9); MEAN PLT VOLUME 6.7 fl (7.5-11.1); PLATELET COUNT 450 K/MM3 (134-434); RBC 4.35 M/mm3 (4.00-5.60); RDW 15.7 % (11.9-15.9); WHITE BLOOD COUNT 17.3 K/mm3 (4.0-10.0)
[2017-11-08 08:02] LABS: ALBUMIN 2.4 g/dl (3.4-5.0); ANION GAP 8 (8-16); BLOOD UREA NITROGEN 17 mg/dL (7-18); CHLORIDE 104 mmol/L (98-107); CO2 28 mmol/L (21-32); GLUCOSE,RANDOM 77 mg/dL (74-106); SODIUM 140 mmol/L (136-145)
[2017-11-08 08:06] LABS: ALK PHOS 91 U/L (45-117); BILIRUBIN,TOTAL 0.9 mg/dL (0.2-1.0); CREATININE 1.4 mg/dL (0.7-1.3); SGOT/AST 6 U/L (15-37); SGPT/ALT 8 U/L (12-78); TOT PROT 6.3 g/dl (6.4-8.2)
--- NOTE | 2017-11-08 09:27 | PN ---
Progress Note (short form) - Note Progress Note: Subjective: The patient was seen and examined at the bedside, he reports feeling better today. He states he is passing gas and that his appetite has improved Current Medications Generic Name Dose Route Start Last Admin Trade Name Agata PRN Reason Stop Dose Admin Acetaminophen 325 mg 11/06/17 19:35 Tylenol - PO Q4H PRN PAIN LEVEL 4 - 6 Amlodipine Besylate 10 mg 11/06/17 13:15 11/07/17 09:22 Norvasc - PO 10 mg DAILY BRIAN Administration Docusate Sodium 100 mg 11/06/17 22:00 11/07/17 22:32 Colace - PO 100 mg BID BRIAN Administration Heparin Sodium (Porcine) 5,000 unit 11/07/17 10:00 11/07/17 22:32 Heparin - SQ 5,000 unit BID BRIAN Administration Piperacillin Sod/Tazobactam 100 mls @ 200 mls/hr 11/05/17 18:00 11/08/17 01: 41 Sod 4.5 gm/ Dextrose IVPB 200 mls/hr Q8H-IV BRIAN Administration Metoprolol Tartrate 50 mg 11/06/17 13:15 11/07/17 22:32 Lopressor - PO 50 mg BID BRIAN Administration Morphine Sulfate 4 mg 11/06/17 19:38 11/07/17 23:17 Morphine Injection - IVPUSH 4 mg Q3H PRN Administration PAIN LEVEL 7 - 10 Oxycodone HCl 5 mg 11/06/17 19:35 11/08/17 01:42 Roxicodone - PO 5 mg Q4H PRN Administration PAIN LEVEL 4 - 6 Objective: Vital Signs Period Temp Pulse Resp BP Sys/Abraham Pulse Ox Last 24 Hr 97.5 F-98.3 F 77-89 18-20 138-157/81-100 95-95 Physical Exam: General: NAD, A&Ox3 Lungs: Decreased breath sounds anteriorly Heart: RRR, S1S2 Abd: Midline abdominal dressing c/d/i. RLQ GENA with scant serous drainage Ext: Warm, well-perfused. 2+ DP/PT bilaterally CBCD WBC 17.3 K/mm3 (4.0-10.0) H 11/08/17 06:00 RBC 4.35 M/mm3 (4.00-5.60) 11/08/17 06:00 Hgb 10.9 GM/dL (11.7-16.9) L 11/08/17 06:00 Hct 34.4 % (35.4-49) L 11/08/17 06:00 MCV 79.0 fl (80-96) L 11/08/17 06:00 MCHC 31.6 g/dl (32.0-35.9) L 11/08/17 06:00 RDW 15.7 % (11.9-15.9) 11/08/17 06:00 Plt Count 450 K/MM3 (134-434) H 11/08/17 06:00 MPV 6.7 fl (7.5-11.1) L 11/08/17 06:00 CMP Sodium 140 mmol/L (136-145) 11/08/17 06:00 Potassium 4.0 mmol/L (3.5-5.1) 11/08/17 06:00 Chloride 104 mmol/L (98-107) 11/08/17 06:00 Carbon Dioxide 28 mmol/L (21-32) 11/08/17 06:00 Anion Gap 8 (8-16) 11/08/17 06:00 BUN 17 mg/dL (7-18) 11/08/17 06:00 Creatinine 1.4 mg/dL (0.7-1.3) H 11/08/17 06:00 Creat Clearance w eGFR 55.05 (>60) 11/08/17 06:00 Random Glucose 77 mg/dL (74-106) 11/08/17 06:00 Calcium 8.0 mg/dL (8.5-10.1) L 11/08/17 06:00 Total Bilirubin 0.9 mg/dL (0.2-1.0) D 11/08/17 06:00 AST 6 U/L (15-37) L 11/08/17 06:00 ALT 8 U/L (12-78) L D 11/08/17 06:00 Alkaline Phosphatase 91 U/L (45-117) 11/08/17 06:00 Total Protein 6.3 g/dl (6.4-8.2) L 11/08/17 06:00 Albumin 2.4 g/dl (3.4-5.0) L 11/08/17 06:00 Microbiology 11/04/17 18:25 Blood - Peripheral Venous Blood Culture - Preliminary NO GROWTH OBTAINED AFTER 72 HOURS, INCUBATION TO CONTINUE FOR 2 DAYS. 11/04/17 18:25 Blood - Peripheral Venous Blood Culture - Preliminary NO GROWTH OBTAINED AFTER 72 HOURS, INCUBATION TO CONTINUE FOR 2 DAYS. 11/04/17 17:10 Urine - Urine Clean Catch Urine Culture - Final NO GROWTH OBTAINED Assessment: This is a 42 year old male with PMHx of HTN, renal calculi, active cigarette smoker, likely undiagnosed sleep apnea who presented to the ED with RLQ pain and nausea. Plan: 1) Sepsis 2/2 appendicitis with intraabdominal abscess - S/p diagnositic laparoscopy, laparotomy, lysis of adhesions, appendectomy and abdominal washout on 11/04 - Patient passing gas, no bowel movement - Continue Zosyn 4.5mg q8h - WBC trending down: 25.3->17.9->17.3 - Incentive spirometer - RLQ GENA with 60ml yesterday - Appreciate surgery consult - Appreciate ID consult 2) Likely undiagnosed sleep apnea - For PSG to r/o [facility]AS as outpatient - CPAP qhs - Appreciate pulmonary consult 3) CORTNEY - Cr 1.4 - Unknown baseline - Encourage po fluid intake - Continue to trend 4) HTN - Continue Lopressor - Continue Norvasc 5) Thrombocytosis - Reactive 2/2 sepsis? Trending down - Continue to trend, will need outpatient follow-up 6) F/E/N: - Sodium controlled diet - Monitor electrolytes 7) Prophylaxis: - Heparin 5,000u sq bid 8) Dispo: - Requires continued inpatient care CODE STATUS: FULL CODE Visit type - Emergency Visit Emergency Visit: Yes ED Registration Date: 11/04/17 Care time: The patient presented to the Emergency Department on the above date and was hospitalized for further evaluation of their emergent condition. - New Patient This patient is new to me today: No - Critical Care Critical Care patient: No
[2017-11-08] MEDS: DOCUSATE SODIUM 100 MG CAPSULE (FP) PO SCH ×2 (09:31→21:17)
[2017-11-08] MEDS: METOPROLOL TARTRATE 50 MG TABLET (FP) PO SCH ×2 (09:31→21:17)
[2017-11-08] MEDS: amLODIPine BESYLATE 5 MG TABLET (FP) PO SCH (09:31)
[2017-11-08] MEDS: HEPARIN NA (PORCINE) 5,000 UNITS/ML 1ML VIAL SQ SCH ×2 (09:32→21:17)
--- NOTE | 2017-11-08 10:57 | PN ---
Progress Note, Physician Chief Complaint: abdominal pain History of Present Illness: 42yo male PMH HTN, obesity presents with right lower quadrant abdominal pain for about 24 hours. doing well post operatively, complains of hunger. has been afebrile. and he is consuming ice chips, jason was discontinued this morning. - Current Medication List Current Medications: Active Medications Acetaminophen (Tylenol -) 325 mg PO Q4H PRN PRN Reason: PAIN LEVEL 4 - 6 Amlodipine Besylate (Norvasc -) 10 mg PO DAILY [facility] Last Admin: 11/08/17 09:31 Dose: 10 mg Docusate Sodium (Colace -) 100 mg PO BID [facility] Last Admin: 11/08/17 09:31 Dose: 100 mg Heparin Sodium (Porcine) (Heparin -) 5,000 unit SQ BID [facility] Last Admin: 11/08/17 09:32 Dose: 5,000 unit Piperacillin Sod/Tazobactam (Sod 4.5 gm/ Dextrose) 100 mls @ 200 mls/hr IVPB Q8H-IV [facility] Last Admin: 11/08/17 09:31 Dose: 200 mls/hr Metoprolol Tartrate (Lopressor -) 50 mg PO BID [facility] Last Admin: 11/08/17 09:31 Dose: 50 mg Morphine Sulfate (Morphine Injection -) 4 mg IVPUSH Q3H PRN PRN Reason: PAIN LEVEL 7 - 10 Last Admin: 11/07/17 23:17 Dose: 4 mg Oxycodone HCl (Roxicodone -) 5 mg PO Q4H PRN PRN Reason: PAIN LEVEL 4 - 6 Last Admin: 11/08/17 09:31 Dose: 5 mg - Objective Vital Signs: Vital Signs Temperature 98 F 11/08/17 05:36 Pulse Rate 85 11/08/17 05:36 Respiratory Rate 20 11/08/17 05:36 Blood Pressure 150/90 11/08/17 05:36 O2 Sat by Pulse Oximetry (%) 95 11/07/17 21:00 Vital Signs Period Temp Pulse Resp BP Sys/Abraham Pulse Ox Last 24 Hr 97.5 F-98.3 F 77-87 18-20 138-157/81-100 95 Intake & Output 11/07/17 11/08/17 11/08/17 23:59 07:59 15:59 Intake Total 500 100 Output Total 10 750 10 Balance 490 -650 -10 Intake: IVPB 200 100 Oral 300 Output: Drainage 10 10 Right Abdomen 10 10 Urine 0 750 Void 0 750 Other: Voiding Method Urinal Bowel Movement No Constitutional: Yes: No Distress, Calm, Obese Eyes: Yes: Conjunctiva Clear, EOM Intact HENT: Yes: Atraumatic, Normocephalic Neck: Yes: Supple, Trachea Midline Cardiovascular: Yes: Regular Rate and Rhythm, S1, S2 Respiratory: Yes: Regular, CTA Bilaterally Gastrointestinal: Yes: Normal Bowel Sounds, Soft, Abdomen, Obese ...Rectal Exam: Yes: Deferred Genitourinary: No: CVA Tenderness - Left, CVA Tenderness - Right Musculoskeletal: No: Muscle Pain, Muscle Weakness Extremities: No: Cool, Cyanosis Edema: No Peripheral Pulses WNL: Yes Peripheral Pulses: Left Radial: 2+, Right Radial: 2+, Left Doralis Pedis: 2+, Right Dorsalis Pedis: 2+, Left Femoral: 2+, Right Femoral: 2+ Wound/Incision: Yes: Evelin Intact, Dressing Removed, Draining (20ml in 24 hours), Unapproximated (packed 1 inch iodofrom.) Neurological: Yes: Alert, Oriented Psychiatric: Yes: Alert, Oriented Labs: CBC, BMP 11/08/17 06:00 11/08/17 06:00 INR, PTT INR 1.25 (0.82-1.09) H 11/04/17 22:15 Problem List - Problems (1) Appendicitis, acute, with peritonitis Assessment/Plan: 42yo male with PMH HTN morbid obesity, acute on chronic appendicitis with peritonitits and intra-abdominal abscess, POD#4 s/p Laparotomy and appendectomy , minimal drainage will discontinue GENA Drain only 20ml, no nausea. passing flatus. Tolerating diet. WBC down to 17.3 may be advanced as tolerated Continue IV antibiotics Daily wound care Trend CBC Incentive spirometry continue CPAP at night OOB and ambulate Plan for D/C with VNS by weeks end Code(s): K35.3 - ACUTE APPENDICITIS WITH LOCALIZED PERITONITIS (2) Right lower quadrant abdominal pain Code(s): R10.31 - RIGHT LOWER QUADRANT PAIN (3) HTN (hypertension) Code(s): I10 - ESSENTIAL (PRIMARY) HYPERTENSION Qualifiers: Hypertension type: essential hypertension Qualified Code(s): I10 - Essential (primary) hypertension (4) Morbid obesity with BMI of 45.0-49.9, adult Code(s): E66.01 - MORBID (SEVERE) OBESITY DUE TO EXCESS CALORIES; Z68.42 - BODY MASS INDEX (BMI) 45.0-49.9, ADULT (5) Leukocytosis Code(s): D72.829 - ELEVATED WHITE BLOOD CELL COUNT, UNSPECIFIED Qualifiers: Leukocytosis type: unspecified Qualified Code(s): D72.829 - Elevated white blood cell count, unspecified
--- NOTE | 2017-11-08 11:40 | EKG ---
Test Reason : Blood Pressure : / mmHG Vent. Rate : 105 BPM Atrial Rate : 105 BPM P-R Int : 156 ms QRS Dur : 098 ms QT Int : 358 ms P-R-T Axes : 019 -36 023 degrees QTc Int : 473 ms SINUS TACHYCARDIA POSSIBLE LEFT ATRIAL ENLARGEMENT LEFT AXIS DEVIATION LEFT VENTRICULAR HYPERTROPHY ABNORMAL ECG NO PREVIOUS ECGS AVAILABLE Confirmed by MD Clifford, Chapo ([id number]) on 11/08/2017 11:40:43 AM Referred By: Confirmed By:Chapo Horton MD
[2017-11-08] MEDS: MORPHINE SULFATE 10 MG/1 ML *VIAL IVPUSH PRN ×2 (13:05→21:18)
[2017-11-08] MEDS ORDERED: ONDANSETRON 8 MG TABLET (FP) PO PRN (13:24)
--- NOTE | 2017-11-08 13:32 | PATH ---
Surgical Pathology Report Patient Name: ISAIAS MARQUIS [facility]. Rec. #: [id number] /Age/Gender: 1975 (Age: 42) / M Account: [id number] Location: [facility] MED/SURG Taken: 11/04/2017 Received: 11/07/2017 Reported: 11/08/2017 Physicians: Dell Ma M.D. Specimen(s) Received APPENDIX Clinical History Appendicitis and phlegmon Final Diagnosis APPENDIX, LAPAROSCOPIC APPENDECTOMY: ACUTE APPENDICITIS AND PERIAPPENDICITIS. Electronically Signed Caryn Horton M.D. Gross Description Received in formalin, labeled "appendix," is a 6.5 cm. in length vermiform appendix with a stapled margin of resection and moderate attached fat. The serosa is argueta-barillas with attached exudate. Sectioning reveals a focally hemorrhagic lumen. The wall of the appendix averages 0.2 cm. in thickness. Molding Supervisor sections are submitted in one cassette. 11/07/2017 [facility]11/07/2017
--- NOTE | 2017-11-08 13:45 | OP ---
DATE OF OPERATION: 11/04/2017 PREOPERATIVE DIAGNOSIS: Acute appendicitis with intraabdominal abscess. POSTOPERATIVE DIAGNOSIS: Acute appendicitis with intraabdominal abscess. PROCEDURE: Diagnostic laparoscopy converted to open laparotomy, lysis of adhesions, appendectomy and abdominal washout. ATTENDING SURGEON: Bernardo Jaffe MD ROLLER SETTER: . ANESTHESIA: General. ESTIMATED BLOOD LOSS: 20 mL. IV FLUID: 1600 mL. URINE OUTPUT: In the De La Torre is 250 ml intraoperatively and was kept for the postoperative period. ADDITIONAL DRAINS PLACED: J-P size 10 flat in the right lower quadrant. SPECIMEN: Appendix. INDICATION: Patient is a 42-year-old man presenting with abdominal pain for a course of 2 weeks now associated with nausea, vomiting, malaise and severe right lower quadrant pain. He notes approximately 2 weeks ago he noticed pain in the abdomen. He thought it was the stomach flu. He did not seek medical attention. He did have nausea and vomiting at the time as well as right lower quadrant pain. He presented today when the nausea and vomiting returned. The abdominal pain was severe. He developed low-grade fevers at home. CT scan revealed inflamed small bowel and appendix with an intraabdominal abscess. He was counseled regarding the possibility of a ruptured appendicitis versus appendicitis with intraabdominal abscess. Given the chronicity of his illness, he was counseled regarding risks, benefits and alternatives to surgical exploration and appendectomy, signed informed consent and was taken for the procedure. PROCEDURE: Patient was brought to the operating room. He was placed in the supine position on the operating table with both arms extended 90 degrees perpendicular to the body's axis. The lower extremities had SCDs placed. He was induced with general anesthesia without event and endotracheally intubated. Patient had a De La Torre placed for decompression of the bladder. The anterior abdominal wall was shaved, prepped and draped in the standard surgical fashion. Patient received intravenous antibiotics in the emergency department just prior to surgery. We proceeded first with a formal timeout, identifying the operative site and proposed procedure. With all parties in agreement, we began with a superior umbilical approach for laparoscopy. This was scribed in the midline and it was incised with a 15-blade scalpel. It was deepened and widened through the subcutaneous tissue to the anterior abdominal wall midline fascia of the rectus muscles. The fascia was identified and elevated with Jose Eduardo clamps and then a blunt entry was made into the abdomen with a large Sofy. Once inside the abdomen, a finger was used to clear the intraabdominal adhesions. A 12-mm Nahun port was then installed into the abdomen and pneumoperitoneum was established to 15 mmHg. With this pneumoperitoneum established, we proceeded first with inspection with a 5-mm 30-degree scope. The intraabdominal tract was rote with oriana purulent material all over the abdomen. It was clear after installation of CO2 into the abdomen that there was purulent drainage backward. The patient was placed into Trendelenburg. There appeared to be pus throughout the lower abdomen below the umbilicus into the pelvis and into the cul-de-sac. There was a large amount of infected peel along the right lateral abdominal wall with adhesions to small-bowel loops. The attempt was gently made to dissect off of the abdominal wall the adhesed small bowel and we got to a point where it was clear that no additional progress could be made with the diagnostic laparoscopy and the appendix still had not been identified. The decision was made to relieve the pneumoperitoneum, remove the camera and convert to an open exploratory laparotomy. This was done. Leaving the midline port entry, we extended the incision from supraumbilical around the right lateral umbilicus and into the lower midline just above the suprapubic area. This was incised with a 10-blade scalpel, deepened and widened through the thick pannus to the midline fascia. Once identified, it was opened under direct visualization and entry into the abdomen was made with fingers protecting the abdominal viscera. With the laparotomy incision now open, we proceeded with installation of a self-retaining retractor. The patient was then eviscerated in a level position, eviscerated of small-bowel contents until adhesions to the abdominal wall were identified. They were taken down carefully with blunt finger dissection. We then proceeded to identify the colon along the right lateral abdomen. The white line of Toldt was followed down with the tinea to the base of the appendix which was palpated. The appendix itself was then delivered into the laparotomy wound with gentle traction on the cecum. The appendix body was then grasped with a Jose clamp and traced to its base. There appeared to be a large amount of purulent drainage once we entered into the abscess which had formed just adjacent to the appendix. The small bowel itself appeared thickened. It was packed away from the surgical field. The appendix itself was isolated. An Endo-TIFFANY size 60 with a blue load was then used to transect the appendix base and mesoappendix which was inflamed and matted as well as significant creeping fat. The stapler was fired, protecting the bowel, away from the site across the appendix base and the mesoappendix. The appendix was then given as a specimen off of the operative field. We then proceeded with inspection of the stapled anastomosis. There appeared to be little to no bleeding. We then took our time to explore the remainder of the abdomen. The NG tube which was placed from above was guided into the stomach and secured to the nose. The De La Torre was checked for its position in the bladder and it appeared atraumatic. A large amount of pus was suctioned from the abdomen and after approximately 2 L of sterile irrigation instilled into the abdomen became clear. The peel was taken down from the right lateral abdominal wall. The remainder of the bowel then just appeared thickened without disturbance to its integrity. It was reinstalled into the abdomen into anatomic position. There was no additional need for bowel resection. We proceeded then with irrigation of the site. The liver appeared normal. Gallbladder appeared normal. The stomach and its wall appeared normal as well. The remainder of the colon transverse which could easily be identified with omentum also appeared without additional pathology. The decision was made to close the midline fascia. We used No. 1 looped PDS from the superior and inferior poles of the laparotomy incision. It was tied in the middle at which point we proceeded to leave the skin open. The skin at the umbilicus was approximated circumferentially with george. The midline wound was then washed and then small windows for skin opening were left for additional packing. One-inch Iodoform packing was then introduced into the open skin. The skin was cleaned. Sterile dressings were placed, gauze sponges as well as an absorbent abdominal pad and tape. Prior to closure, a 10-mm J-P size 10 flat was introduced into the right lower quadrant and secured to the skin with nylon and the J-P itself was laid along the white line of Toldt at the cecum at the site of appendectomy. It was placed to bulb suction with the dressings. The patient was awoken from general anesthesia, having tolerated the procedure well. He was stable throughout and instrument counts were correct as well. Of procedural note was an abdominal x-ray was taken as this was standard procedure for conversion from laparoscopic to open surgery according to the nursing staff. This was without incident and was read as to not contain any foreign bodies that could be appreciated on the x-ray film. He was returned to recovery in stable condition after being extubated in the operating room. MD NANCY English/[id number]
[2017-11-09] MEDS: PIPERACILLIN/TAZOB 4.5 GM 4.5 GM in DEXTROSE 5%-WATER - 100 ML IVPB SCH ×3 (03:06→18:16)
[2017-11-09 07:07] LABS: HEMATOCRIT 32.1 % (35.4-49); HEMOGLOBIN 10.2 GM/dL (11.7-16.9); MCHC 31.7 g/dl (32.0-35.9); MEAN CELL VOLUME 78.9 fl (80-96); MEAN PLT VOLUME 6.9 fl (7.5-11.1); PLATELET COUNT 454 K/MM3 (134-434); RBC 4.07 M/mm3 (4.00-5.60); RDW 15.8 % (11.9-15.9); WHITE BLOOD COUNT 15.9 K/mm3 (4.0-10.0)
[2017-11-09 07:09] LABS: CALCIUM 8.1 mg/dL (8.5-10.1); CHLORIDE 104 mmol/L (98-107); SODIUM 140 mmol/L (136-145)
[2017-11-09 07:13] LABS: ANION GAP 7 (8-16); BLOOD UREA NITROGEN 16 mg/dL (7-18); CO2 29 mmol/L (21-32); CREATININE 1.3 mg/dL (0.7-1.3); GLUCOSE,RANDOM 88 mg/dL (74-106)
--- NOTE | 2017-11-09 09:52 | PN ---
Progress Note, Physician Chief Complaint: abdominal pain History of Present Illness: 42yo male PMH HTN, obesity presents with right lower quadrant abdominal pain for about 24 hours. doing well post operatively, complains of hunger. has been afebrile. and he is consuming ice chips, jason was discontinued this morning. - Current Medication List Current Medications: Active Medications Acetaminophen (Tylenol -) 325 mg PO Q4H PRN PRN Reason: PAIN LEVEL 4 - 6 Amlodipine Besylate (Norvasc -) 10 mg PO DAILY [facility] Last Admin: 11/08/17 09:31 Dose: 10 mg Docusate Sodium (Colace -) 100 mg PO BID [facility] Last Admin: 11/08/17 21:17 Dose: 100 mg Heparin Sodium (Porcine) (Heparin -) 5,000 unit SQ BID [facility] Last Admin: 11/08/17 21:17 Dose: 5,000 unit Piperacillin Sod/Tazobactam (Sod 4.5 gm/ Dextrose) 100 mls @ 200 mls/hr IVPB Q8H-IV [facility] Last Admin: 11/09/17 03:06 Dose: 200 mls/hr Metoprolol Tartrate (Lopressor -) 50 mg PO BID [facility] Last Admin: 11/08/17 21:17 Dose: 50 mg Morphine Sulfate (Morphine Injection -) 4 mg IVPUSH Q3H PRN PRN Reason: PAIN LEVEL 7 - 10 Last Admin: 11/08/17 21:18 Dose: 4 mg Ondansetron HCl (Zofran -) 4 mg PO Q8H PRN PRN Reason: NAUSEA AND/OR VOMITING Oxycodone HCl (Roxicodone -) 5 mg PO Q4H PRN PRN Reason: PAIN LEVEL 4 - 6 Last Admin: 11/08/17 18:03 Dose: 5 mg - Objective Vital Signs: Vital Signs Temperature 98.1 F 11/09/17 05:00 Pulse Rate 78 11/09/17 05:00 Respiratory Rate 20 11/09/17 05:00 Blood Pressure 149/91 11/09/17 05:00 O2 Sat by Pulse Oximetry (%) 93 L 11/09/17 09:40 Vital Signs Period Temp Pulse Resp BP Sys/Abraham Pulse Ox Last 24 Hr 97.6 F-98.7 F 69-102 20-20 148-154/82-97 93-97 Constitutional: Yes: No Distress, Calm, Obese Eyes: Yes: Conjunctiva Clear, EOM Intact HENT: Yes: Atraumatic, Normocephalic Neck: Yes: Supple, Trachea Midline Cardiovascular: Yes: Regular Rate and Rhythm, S1, S2 Respiratory: Yes: Regular, CTA Bilaterally Gastrointestinal: Yes: Normal Bowel Sounds, Soft, Abdomen, Obese, Tenderness ( aleksandr-incsional) Musculoskeletal: No: Muscle Pain, Muscle Weakness Extremities: No: Cool, Cyanosis Wound/Incision: Yes: Sutures Intact, Unapproximated (Midline laparotomy with 3 openings (1 above the umbilicus, 2 below the umbilicus)) Neurological: Yes: Alert, Oriented Psychiatric: Yes: Alert, Oriented Labs: CBC, BMP 11/09/17 05:35 11/09/17 05:35 INR, PTT INR 1.25 (0.82-1.09) H 11/04/17 22:15 Microbiology 11/04/17 20:08 Abscess Gram Stain - Final 11/04/17 20:08 Abscess Wound Culture - Preliminary NO GROWTH OBTAINED AFTER 24 HOURS INCUBATION, REINCUBATED. 11/04/17 18:25 Blood - Peripheral Venous Blood Culture - Preliminary NO GROWTH OBTAINED AFTER 96 HOURS, INCUBATION TO CONTINUE FOR 1 DAYS. 11/04/17 18:25 Blood - Peripheral Venous Blood Culture - Preliminary NO GROWTH OBTAINED AFTER 96 HOURS, INCUBATION TO CONTINUE FOR 1 DAYS. 11/04/17 17:10 Urine - Urine Clean Catch Urine Culture - Final NO GROWTH OBTAINED Problem List - Problems (1) Appendicitis, acute, with peritonitis Assessment/Plan: 42yo male with PMH HTN morbid obesity, acute on chronic appendicitis with peritonitits and intra-abdominal abscess, POD#5 s/p Laparotomy and appendectomy , tolerating diet, voiding, afebrile, passing flatus, ambulating. WBC down to 15.9 Continue IV antibiotics Abdominal midline wound wet-to-dry daily Wound Measurement: 20 cm in length partially stapled, 3 openings - [id number] into abdominal fat pannus Dressing instructions: 0.9%NS, Moist 4X4 gauze in the openings, Dry 4X4 gauze cover, 2"tape f/u cultures Trend CBC Incentive spirometry continue CPAP at night OOB and ambulate Plan for D/C with VNS when WBC is normal Code(s): K35.3 - ACUTE APPENDICITIS WITH LOCALIZED PERITONITIS (2) Right lower quadrant abdominal pain Code(s): R10.31 - RIGHT LOWER QUADRANT PAIN (3) HTN (hypertension) Code(s): I10 - ESSENTIAL (PRIMARY) HYPERTENSION Qualifiers: Hypertension type: essential hypertension Qualified Code(s): I10 - Essential (primary) hypertension (4) Morbid obesity with BMI of 45.0-49.9, adult Code(s): E66.01 - MORBID (SEVERE) OBESITY DUE TO EXCESS CALORIES; Z68.42 - BODY MASS INDEX (BMI) 45.0-49.9, ADULT (5) Leukocytosis Code(s): D72.829 - ELEVATED WHITE BLOOD CELL COUNT, UNSPECIFIED Qualifiers: Leukocytosis type: unspecified Qualified Code(s): D72.829 - Elevated white blood cell count, unspecified
[2017-11-09] MEDS: oxyCODONE HCL 5 MG TABLET PO PRN (10:07)
[2017-11-09] MEDS: DOCUSATE SODIUM 100 MG CAPSULE (FP) PO SCH ×2 (10:08→22:24)
[2017-11-09] MEDS: amLODIPine BESYLATE 5 MG TABLET (FP) PO SCH (10:08)
[2017-11-09] MEDS: HEPARIN NA (PORCINE) 5,000 UNITS/ML 1ML VIAL SQ SCH ×2 (10:08→22:24)
[2017-11-09] MEDS: METOPROLOL TARTRATE 50 MG TABLET (FP) PO SCH ×2 (10:08→22:24)
--- NOTE | 2017-11-09 11:21 | PN ---
Progress Note (short form) - Note Progress Note: Subjective: The patient was seen and examined at the bedside, he reports feeling better today. He walked with physical therapy yesterday 30 feet and states he may be able to go further today Current Medications Generic Name Dose Route Start Last Admin Trade Name Smithq PRN Reason Stop Dose Admin Acetaminophen 325 mg 11/06/17 19:35 11/09/17 10:06 Tylenol - PO 325 mg Q4H PRN Administration PAIN LEVEL 4 - 6 Amlodipine Besylate 10 mg 11/06/17 13:15 11/09/17 10:08 Norvasc - PO 10 mg DAILY BRIAN Administration Docusate Sodium 100 mg 11/06/17 22:00 11/09/17 10:08 Colace - PO 100 mg BID [facility]AN Administration Heparin Sodium (Porcine) 5,000 unit 11/07/17 10:00 11/09/17 10:08 Heparin - SQ 5,000 unit BID [facility]AN Administration Piperacillin Sod/Tazobactam 100 mls @ 200 mls/hr 11/05/17 18:00 11/09/17 10: 06 Sod 4.5 gm/ Dextrose IVPB 200 mls/hr Q8H-IV [facility]RIAN Administration Metoprolol Tartrate 50 mg 11/06/17 13:15 11/09/17 10:08 Lopressor - PO 50 mg BID BRIAN Administration Morphine Sulfate 4 mg 11/06/17 19:38 11/08/17 21:18 Morphine Injection - IVPUSH 4 mg Q3H PRN Administration PAIN LEVEL 7 - 10 Ondansetron HCl 4 mg 11/08/17 14:01 Zofran - PO Q8H PRN NAUSEA AND/OR VOMITING Oxycodone HCl 5 mg 11/06/17 19:35 11/09/17 10:07 Roxicodone - PO 5 mg Q4H PRN Administration PAIN LEVEL 4 - 6 Objective: Vital Signs Period Temp Pulse Resp BP Sys/Abraham Pulse Ox Last 24 Hr 97.6 F-98.7 F 69-102 20-20 148-154/82-97 93-97 Physical Exam: General: NAD, A&Ox3 Lungs: CTA bilaterally Heart: RRR, S1S2 Abd: Midline abdominal dressing c/d/i. RLQ GENA with scant serous drainage Ext: Warm, well-perfused. 2+ DP/PT bilaterally CBCD WBC 15.9 K/mm3 (4.0-10.0) H 11/09/17 05:35 RBC 4.07 M/mm3 (4.00-5.60) 11/09/17 05:35 Hgb 10.2 GM/dL (11.7-16.9) L 11/09/17 05:35 Hct 32.1 % (35.4-49) L 11/09/17 05:35 MCV 78.9 fl (80-96) L 11/09/17 05:35 MCHC 31.7 g/dl (32.0-35.9) L 11/09/17 05:35 RDW 15.8 % (11.9-15.9) 11/09/17 05:35 Plt Count 454 K/MM3 (134-434) H 11/09/17 05:35 MPV 6.9 fl (7.5-11.1) L 11/09/17 05:35 CMP Sodium 140 mmol/L (136-145) 11/09/17 05:35 Potassium 4.0 mmol/L (3.5-5.1) 11/09/17 05:35 Chloride 104 mmol/L (98-107) 11/09/17 05:35 Carbon Dioxide 29 mmol/L (21-32) 11/09/17 05:35 Anion Gap 7 (8-16) L 11/09/17 05:35 BUN 16 mg/dL (7-18) 11/09/17 05:35 Creatinine 1.3 mg/dL (0.7-1.3) 11/09/17 05:35 Creat Clearance w eGFR 55.05 (>60) 11/08/17 06:00 Random Glucose 88 mg/dL (74-106) 11/09/17 05:35 Calcium 8.1 mg/dL (8.5-10.1) L 11/09/17 05:35 Total Bilirubin 0.9 mg/dL (0.2-1.0) D 11/08/17 06:00 AST 6 U/L (15-37) L 11/08/17 06:00 ALT 8 U/L (12-78) L D 11/08/17 06:00 Alkaline Phosphatase 91 U/L (45-117) 11/08/17 06:00 Total Protein 6.3 g/dl (6.4-8.2) L 11/08/17 06:00 Albumin 2.4 g/dl (3.4-5.0) L 11/08/17 06:00 Microbiology 11/04/17 20:08 Abscess Gram Stain - Final 11/04/17 20:08 Abscess Wound Culture - Preliminary NO GROWTH OBTAINED AFTER 24 HOURS INCUBATION, REINCUBATED. 11/04/17 18:25 Blood - Peripheral Venous Blood Culture - Preliminary NO GROWTH OBTAINED AFTER 96 HOURS, INCUBATION TO CONTINUE FOR 1 DAYS. 11/04/17 18:25 Blood - Peripheral Venous Blood Culture - Preliminary NO GROWTH OBTAINED AFTER 96 HOURS, INCUBATION TO CONTINUE FOR 1 DAYS. 11/04/17 17:10 Urine - Urine Clean Catch Urine Culture - Final NO GROWTH OBTAINED Assessment: This is a 42 year old male with PMHx of HTN, renal calculi, active cigarette smoker, likely undiagnosed sleep apnea who presented to the ED with RLQ pain and nausea. Plan: 1) Sepsis 2/2 appendicitis with intraabdominal abscess - S/p diagnositic laparoscopy, laparotomy, lysis of adhesions, appendectomy and abdominal washout on 11/04 - Patient passing gas - Continue Zosyn 4.5mg q8h - WBC trending down: 25.3->17.9->17.3->15.9 - Incentive spirometer - RLQ GENA with 10ml yesterday - Appreciate surgery consult - Appreciate ID consult 2) Likely undiagnosed sleep apnea - For PSG to r/o [facility] as outpatient - CPAP qhs - Appreciate pulmonary consult 3) CORTNEY - Resolved - Encourage po fluid intake - Continue to trend 4) HTN - Continue Lopressor - Continue Norvasc 5) Thrombocytosis - Reactive 2/2 sepsis? - Continue to trend, will need outpatient follow-up 6) F/E/N: - Sodium controlled diet - Monitor electrolytes 7) Prophylaxis: - Heparin 5,000u sq bid - PT: walked 30ft with PT yesterday 8) Dispo: - Requires continued inpatient care CODE STATUS: FULL CODE Visit type - Emergency Visit Emergency Visit: Yes ED Registration Date: 11/04/17 Care time: The patient presented to the Emergency Department on the above date and was hospitalized for further evaluation of their emergent condition. - New Patient This patient is new to me today: No - Critical Care Critical Care patient: No
[2017-11-09] MEDS: MORPHINE SULFATE 10 MG/1 ML *VIAL IVPUSH PRN ×2 (18:17→22:24)
[2017-11-09] MEDS: ONDANSETRON 4 MG TABLET PO PRN (18:22)
[2017-11-10] MEDS ORDERED: PT OWN MED DRAWER 7, Y5N ONE ×2 (01:58→09:02)
[2017-11-10] MEDS: ONDANSETRON 4 MG TABLET PO PRN (02:28)
[2017-11-10] MEDS: oxyCODONE HCL 5 MG TABLET PO PRN (02:28)
[2017-11-10] MEDS: PIPERACILLIN/TAZOB 4.5 GM 4.5 GM in DEXTROSE 5%-WATER - 100 ML IVPB SCH ×2 (02:28→09:18)
[2017-11-10 08:49] LABS: HEMATOCRIT 33.5 % (35.4-49); MCH 25.9 pg (25.7-33.7); MCHC 32.8 g/dl (32.0-35.9); MEAN PLT VOLUME 6.7 fl (7.5-11.1); PLATELET COUNT 468 K/MM3 (134-434); RBC 4.24 M/mm3 (4.00-5.60); RDW 15.9 % (11.9-15.9); WHITE BLOOD COUNT 15.2 K/mm3 (4.0-10.0)
[2017-11-10 08:59] VITALS: BP 156/91; PULSE 88; TEMP 98
[2017-11-10] MEDS: METOPROLOL TARTRATE 50 MG TABLET (FP) PO SCH (09:18)
[2017-11-10] MEDS: DOCUSATE SODIUM 100 MG CAPSULE (FP) PO SCH (09:18)
[2017-11-10] MEDS: amLODIPine BESYLATE 5 MG TABLET (FP) PO SCH (09:18)
[2017-11-10] MEDS: HEPARIN NA (PORCINE) 5,000 UNITS/ML 1ML VIAL SQ SCH (09:18)
[2017-11-10 09:45] LABS: ACANTHOCYTES 0; ANISOCYTOSIS 0; HELMET CELLS 0; HOWELL-JOLLY BODIES 0; MACROCYTOSIS 0; OVALOCYTE 0; PLATELET ESTIMATE INCREASED; ROULEAU 0; SICKELED CELLS 0; TARGET CELLS 0; TEAR DROP CELLS 0; TOXIC GRANULATION 0
--- NOTE | 2017-11-10 10:04 | PN ---
Progress Note, Physician Chief Complaint: abdominal pain History of Present Illness: 42yo male PMH HTN, obesity presents with right lower quadrant abdominal pain for about 24 hours. doing well post operatively, complains of hunger. has been afebrile. and he is consuming ice chips, jason was discontinued this morning. - Current Medication List Current Medications: Active Medications Acetaminophen (Tylenol -) 325 mg PO Q4H PRN PRN Reason: PAIN LEVEL 4 - 6 Last Admin: 11/09/17 10:06 Dose: 325 mg Amlodipine Besylate (Norvasc -) 10 mg PO DAILY [facility] Last Admin: 11/10/17 09:18 Dose: 10 mg Docusate Sodium (Colace -) 100 mg PO BID [facility] Last Admin: 11/10/17 09:18 Dose: 100 mg Heparin Sodium (Porcine) (Heparin -) 5,000 unit SQ BID [facility] Last Admin: 11/10/17 09:18 Dose: 5,000 unit Piperacillin Sod/Tazobactam (Sod 4.5 gm/ Dextrose) 100 mls @ 200 mls/hr IVPB Q8H-IV [facility] Last Admin: 11/10/17 09:18 Dose: 200 mls/hr Metoprolol Tartrate (Lopressor -) 50 mg PO BID [facility] Last Admin: 11/10/17 09:18 Dose: 50 mg Morphine Sulfate (Morphine Injection -) 4 mg IVPUSH Q3H PRN PRN Reason: PAIN LEVEL 7 - 10 Last Admin: 11/09/17 22:24 Dose: 4 mg Ondansetron HCl (Zofran -) 4 mg PO Q8H PRN PRN Reason: NAUSEA AND/OR VOMITING Last Admin: 11/10/17 02:28 Dose: 4 mg Oxycodone HCl (Roxicodone -) 5 mg PO Q4H PRN PRN Reason: PAIN LEVEL 4 - 6 Last Admin: 11/10/17 02:28 Dose: 5 mg - Objective Vital Signs: Vital Signs Temperature 98.0 F 11/10/17 08:59 Pulse Rate 88 11/10/17 08:59 Respiratory Rate 20 11/10/17 08:59 Blood Pressure 156/91 11/10/17 08:59 O2 Sat by Pulse Oximetry (%) 96 11/09/17 21:00 Constitutional: Yes: No Distress, Calm, Obese Eyes: Yes: Conjunctiva Clear, EOM Intact HENT: Yes: Atraumatic, Normocephalic Neck: Yes: Supple, Trachea Midline Cardiovascular: Yes: Regular Rate and Rhythm, S1, S2 Respiratory: Yes: Regular, CTA Bilaterally Gastrointestinal: Yes: Normal Bowel Sounds, Soft ...Rectal Exam: Yes: Deferred, Erythema Genitourinary: No: CVA Tenderness - Left, CVA Tenderness - Right Extremities: No: Cool, Cyanosis Neurological: Yes: Alert, Oriented Psychiatric: Yes: Alert, Oriented Labs: CBC, BMP 11/10/17 08:10 11/09/17 05:35 INR, PTT INR 1.25 (0.82-1.09) H 11/04/17 22:15 Problem List - Problems (1) Appendicitis, acute, with peritonitis Assessment/Plan: 42yo male with PMH HTN morbid obesity, acute on chronic appendicitis with peritonitits and intra-abdominal abscess, POD#5 s/p Laparotomy and appendectomy , tolerating diet, voiding, afebrile, passing flatus, ambulating. WBC down to 15.9 Abdominal midline wound wet-to-dry daily Wound Measurement: 20 cm in length partially stapled, 3 openings - [id number] into abdominal fat pannus Dressing instructions: 0.9%NS, Moist 4X4 gauze in the openings, Dry 4X4 gauze cover, 2"tape Incentive spirometry continue CPAP at night, Pulmonary for sleep study as outpatient OOB and ambulate Plan for D/C with VNS on Augmentin Code(s): K35.3 - ACUTE APPENDICITIS WITH LOCALIZED PERITONITIS (2) Right lower quadrant abdominal pain Code(s): R10.31 - RIGHT LOWER QUADRANT PAIN (3) HTN (hypertension) Code(s): I10 - ESSENTIAL (PRIMARY) HYPERTENSION Qualifiers: Hypertension type: essential hypertension Qualified Code(s): I10 - Essential (primary) hypertension (4) Morbid obesity with BMI of 45.0-49.9, adult Code(s): E66.01 - MORBID (SEVERE) OBESITY DUE TO EXCESS CALORIES; Z68.42 - BODY MASS INDEX (BMI) 45.0-49.9, ADULT (5) Leukocytosis Code(s): D72.829 - ELEVATED WHITE BLOOD CELL COUNT, UNSPECIFIED Qualifiers: Leukocytosis type: unspecified Qualified Code(s): D72.829 - Elevated white blood cell count, unspecified
--- NOTE | 2017-11-10 10:34 | DS ---
Physical Examination Vital Signs: Vital Signs Temperature 98.0 F 11/10/17 08:59 Pulse Rate 88 11/10/17 08:59 Respiratory Rate 20 11/10/17 08:59 Blood Pressure 156/91 11/10/17 08:59 O2 Sat by Pulse Oximetry (%) 96 11/09/17 21:00 Labs: CBC, BMP 11/10/17 08:10 11/09/17 05:35 Discharge Summary Reason For Visit: LEUKOCYTOSIS; ABDOMINAL PAIN Current Active Problems Abdominal pain (Acute) Appendicitis, acute, with peritonitis (Acute) HTN (hypertension) (Acute) Leukocytosis (Acute) Morbid obesity with BMI of 45.0-49.9, adult (Acute) Right lower quadrant abdominal pain (Acute) Condition: Stable - Instructions Diet, Activity, Other Instructions: Postoperative instructions: You had an open appendectomy and abdominal washout on 11/04/[address] Bernardo Jaffe of [facility]. Dressing: Abdominal midline wound wet-to-dry daily Wound Measurement: 20 cm in length partially stapled, 3 openings - [id number] into abdominal fat pannus Dressing instructions: 0.9%NS, Moist 4X4 gauze in the openings, Dry 4X4 gauze cover, 2"tape Activity: Resume your usual activities gradually, but no heavy exertion or lifting more than 10-15 pounds for 4-6 weeks. Daily dressing by VNS. You may shower daily starting then, just pat the incision areas dry. Evelin should not need to be recovered with any dressings, unless you have been told otherwise. Eat lightly at first, but advance to your usual diet as tolerated. Pain: For pain, you may use and alternate Tylenol (acetaminophen) and/or ibuprofen every 6 hours each as needed; this means that you can take one OR the other at 3-hour intervals. If you are prescribed a Tylenol/narcotic combination for severe pain, use it instead of plain Tylenol as needed and switch back when your pain starts decreasing. Do not take more than 4000mg of acetaminophen in a day. Take medications as prescribed or indicated on the labeling. Follow-up: Call Dr. Jaffe' office at [phone] to make your postop appointment (Tuesday 1-2 weeks after surgery as advised). Clinic is held in the [facility] on the first floor of [facility]. Call the office if you have: * increasing pain not responsive to pain medication * fever of 101F or higher * vomiting * unusual or increasing bleeding or drainage from wounds * increasing redness or swelling at wound sites * inability to urinate Also, see your primary medical doctor within 2-3 days to have your white blood cell count checked. Continue the full course of antibiotics as prescribed. Referrals: Kip Farrell MD [Staff Physician] - (Please follow-up with your primary care provider within 2-3 days to have your white blood cell count checked) Bernardo Jaffe MD [Staff Physician] - ON STAFF,NOT [Primary Care Provider] - Disposition: HOME - Home Medications Comprehensive Discharge Medication List: Ambulatory Orders Acetaminophen [Tylenol .Regular Strength -] 325 mg PO Q4H PRN tablet 11/10/17 Amlodipine Besylate [Norvasc -] 10 mg PO DAILY #60 tablet 11/10/17 Amox-Tr/K Cl [Augmentin - 875Mg Tablet] 1 tab PO TID #21 tablet 11/10/17 Cane 1 each MC ASDIR #1 each 11/10/17 Docusate Sodium [Colace -] 100 mg PO TID #90 capsule 11/10/17 Metoprolol Tartrate [Lopressor -] 50 mg PO BID #60 tablet 11/10/17 oxyCODONE HCL [Roxicodone -] 5 mg PO Q4H PRN #18 tablet MDD 30mg 11/10/17
== END 2017-11-10 11:29 | disposition home or self-care (01) | DRG 710 ==
LOC: JER 12:20 → JERBED 17:30 → JICU 21:32 → J7W 11-05 13:02
PROVIDERS: ADMIT Internal Medicine; ATTEND Registered Nurse
PROC: 0DNW0ZZ Release Peritoneum, Open Approach (ICD-10-PCS; 2017-11-04)
PROC: 0DJD4ZZ Inspection of Lower Intestinal Tract, Percutaneous Endoscopic Approach (ICD-10-PCS; 2017-11-04)
PROC: 0DTJ0ZZ Resection of Appendix, Open Approach (ICD-10-PCS; principal; 2017-11-04 19:30)
DX: A41.9 Sepsis, unspecified organism (principal); N17.9 Acute kidney failure, unspecified; K35.3 Acute appendicitis with localized peritonitis; E66.01 Morbid (severe) obesity due to excess calories; Z68.42 Body mass index [BMI] 45.0-49.9, adult; I10 Essential (primary) hypertension; D72.829 Elevated white blood cell count, unspecified; F17.210 Nicotine dependence, cigarettes, uncomplicated; D47.3 Essential (hemorrhagic) thrombocythemia; G47.33 Obstructive sleep apnea (adult) (pediatric); K66.0 Peritoneal adhesions (postprocedural) (postinfection); D69.6 Thrombocytopenia, unspecified
CPT/HCPCS: 36415; 71045-TC-FY; 74018-TC-FY; 74176; 80048; 80053; 81003; 81015; 83690; 85025; 85027; 85610; 85651; 86038; 86140; 86850; 86900; 86901; 87040; 87070; 87086; 87205; 88304-TC; 93005; 93010; 94660; 94760; 97116-GP; 97161-GP; 99283-25; J1644